=== PATIENT | female | born 1950 | race Caucasian/White ===

== ENCOUNTER 2018-07-13 11:18 | Inpatient (IN) ==
[2018-07-13] MEDS ORDERED: 0.9 % Sodium Chloride 1,000 ML IVC ONE ×2 (12:07→15:34)
[2018-07-13] MEDS ORDERED: Ondansetron 4 MG/2 ML VIAL IVP ONE ×2 (12:07→16:46)
[2018-07-13 12:57] LABS: Hematocrit 33.4 % (35.3-44.9); Hemoglobin 10.8 g/dL (11.5-15.4); Mean Corpuscular HGB Conc 32.3 g/dL (31.6-35.5); Mean Corpuscular Hemoglobin 29.6 pg (28.0-33.3); Mean Corpuscular Volume 91.5 fL (83.0-100.0); Mean Platelet Volume 9.7 fL (9.4-12.4); Platelet Count 314 K/mcL (140-400); Red Blood Count 3.65 M/mcL (3.82-4.97); Red Cell Distribution Width 12.5 % (11.5-14.5)
[2018-07-13 13:22] LABS: Lymphocytes # 0.5 K/mcL (0.6-4.6); Monocytes # 0.9 K/mcL (0.0-1.3); Platelet Estimate Normal (Normal)
--- NOTE | 2018-07-13 13:49 | Emergency Department Note ---
Disposition Clinical Impression: Abdominal pain, Hypernatremia, Dehydration Disposition: Admitted As Inpatient Condition: Fair Referrals: Juan,Dante Thayer MD [Primary Care Provider] - Forms: ED Satisfaction Letter, Work/School Release Time of Disposition: 15:18 General Adult HPI - General Chief complaint: ED Abdominal Pain Stated complaint: abd pain? Time Seen by Provider: 07/13/18 11:51 Source: patient, family Limitations: no limitations - History of Present Illness Pain Scale: 4 - Related Data Home Medications Medication Instructions Recorded Confirmed Bethanechol [Urecholine] 25 mg PO Q12H 07/13/18 07/13/18 Cetirizine HCl [All Day Allergy] 10 mg PO DAILY 07/13/18 07/13/18 Cyclobenzaprine HCl 10 mg PO TID 07/13/18 07/13/18 [Cyclobenzaprine HCl] Gabapentin [Neurontin] 300 mg PO TID 07/13/18 07/13/18 Lisinopril [Zestril] 5 mg PO DAILY 07/13/18 07/13/18 Omeprazole [PriLOSEC] 20 mg PO DAILY PRN 07/13/18 07/13/18 Oxybutynin Chloride [Ditropan Xl] 10 mg PO DAILY 07/13/18 07/13/18 Rosuvastatin Calcium [Rosuvastatin 10 mg PO HS 07/13/18 07/13/18 Calcium] Sertraline [Zoloft] 50 mg PO DAILY 07/13/18 07/13/18 Allergies Allergy/AdvReac Type Severity Reaction Status Date / Time No Known Allergies Allergy Verified 07/13/18 11:22 Past Medical History - Past Medical History Medical history: Reports: hyperlipidemia, hypertension Psychiatric history: Reports: no psych history - Social History Smoking Status: Never smoker Smokeless Tobacco Status: No Alcohol use: Reports: none Drug use: Reports: none Physical Exam - General Limitations: no limitations General appearance: alert Course Vital Signs Temperature 100.4 F H 07/13/18 11:21 Pulse Rate 62 07/13/18 11:21 Respiratory Rate 16 07/13/18 11:21 Blood Pressure 130/59 07/13/18 11:21 O2 Sat by Pulse Oximetry 100 07/13/18 11:21 Temperature 100.4 F H 07/13/18 11:49 Pulse Rate 100 07/13/18 14:00 Respiratory Rate 22 07/13/18 12:59 Blood Pressure 127/84 07/13/18 14:00 O2 Sat by Pulse Oximetry 97 07/13/18 14:00 Oxygen Delivery Oxygen Delivery Room Air Medical Decision Making - Lab Data Result diagrams: 07/13/18 12:22 07/13/18 12:22 Lab Results 07/13/18 07/13/18 07/13/18 Range/Units 12:22 12:22 14:35 WBC 23.4 H (4.3-11.1) K/mcL RBC 3.65 L (3.82-4.97) M/mcL Hgb 10.8 L (11.5-15.4) g/dL Hct 33.4 L (35.3-44.9) % MCV 91.5 (83.0-100.0) fL MCH 29.6 (28.0-33.3) pg MCHC 32.3 (31.6-35.5) g/dL RDW 12.5 (11.5-14.5) % Plt Count 314 (140-400) K/mcL MPV 9.7 (9.4-12.4) fL Seg Neutrophils % 93.0 % Band Neutrophils % 1.0 (0-4) % Lymphocytes % 2.0 % Monocytes % 4.0 % Neutrophils # 22.0 H (1.6-8.9) K/mcL Lymphocytes # 0.5 L (0.6-4.6) K/mcL Monocytes # 0.9 (0.0-1.3) K/mcL Platelet Estimate Normal (Normal) Sodium 156 H (136-145) mEq/L Potassium 3.2 L (3.5-5.1) mEq/L Chloride 82 L (98-107) mEq/L Carbon Dioxide 21 L (23-29) mEq/L BUN 18 (8-23) mg/dL Creatinine 0.80 (0.60-1.20) mg/dL Est GFR ( Amer) > 60 (> 60) Est GFR (Non-Af Amer) > 60 (> 60) BUN/Creatinine Ratio 23 (6-26) Glucose 122 H (70-105) mg/dL Calculated Osmolality 325 H (280-300) Lactic Acid 0.8 (0.5-2.2) mmol/L Calcium 7.0 L (8.6-10.3) mg/dL Total Bilirubin 0.7 (0.3-1.0) mg/dL Direct Bilirubin 0.2 (0.0-0.2) mg/dL Indirect Bilirubin 0.5 (0.0-1.2) mg/dL AST 12 L (13-39) Units/L ALT 9 (7-52) Units/L Alkaline Phosphatase 71 (34-104) Units/L Troponin I < 0.03 (< 0.04) ng/mL Serum Total Protein 6.0 L (6.4-8.9) g/dL Albumin 3.3 L (3.5-5.7) g/dL Globulin 2.7 (2.4-3.5) g/dL Albumin/Globulin Ratio 1.2 (1.1-2.2) Lipase 4 L (11-82) Units/L Critical Care Time Critical Care Time: Yes Total Critical Care Time: 35 Attestation: Critical care performed: Time is exclusive of separately billable procedures. Time includes: direct patient care, patient reassessment, coordination of patient care, interpretation of data (laboratory data, radiology data, and respiratory data), review of patient's medical records, medical consultation and documentation of patient care. Procedures included in critical care time: Procedures excluded from critical care time: Attestation Statement - Attestation Attestation: I, Thang Gonzalez DO, examined this patient [id number] and my medical decision-making was reviewed with Dr. Maureen Garcia, Resident Physician. I agree with the documented findings, disposition and treatment plan as described except to the extent set forth below. Please see my progress notes for details. 60-year-old female presents emergency room with nondescript abdominal discomfort and no desire to eat or drink anything. Currently she is denying chest pain shortness of breath headache vision changes nausea vomiting or diarrhea. Denies any fevers or chills prior to today's events. She has not traveled outside the country. She does not have any specific sick contacts. She does not have any history of hepatitis or liver related etiology. Patient is denying any new medications or eating at any abnormal restaurants. Patient is otherwise clinically stable resting in the bed. Vital signs are normal. Her lungs are clear her heart is regular. Her mucous membranes are dry her lips are cracked. Her trachea is midline. She has diffuse abdominal discomfort and tenderness but no guarding no rigidity no peritoneal symptoms. She has no CVA tenderness. There is no visible rashes or lesions. She has a stable pelvis. She denies any vaginal discharge bleeding or history of ovarian or uterine related issues. The patient is deferring on genitourinary examination at this time. She has no signs of pitting edema in the extremities. She moves all 4 of her extremities at this time without any difficulty. Patient was started with fluids nausea medication pain medication here in the emergency room. Chest x-ray EKG CBC chemistry troponin and BNP along with liver function testing and lipase. Urinalysis urine test will be added on. Patient will also CT imaging of the abdomen with noncontrasted evaluation. Clinical suspicion is for diverticulitis, renal colic , colitis, possible bowel obstruction or intra-abdominal related etiology. Disposition will be determined once the full workup and treatment course I been established. See detailed documentation of the physical exam, medical intervention, medical decision-making and disposition. No critical care provider the patient's treatment course at this time. Patient does have a temperature of 100.4. Tylenol and Motrin will be helpful to the liver function testing as well as the kidney function have been resulted. Fluids will be provided conjunctiva at this time. 1500 Patient has stable evaluation this time. No acute findings of infectious source at this point. Patient's sodium is profoundly elevated at 156. Nephrology was contacted for evaluation management of the lecture light abnormalities. Dr. Granger recommended a bolus of D5 in water and then maintenance fluids with D5 in water to be provided at 125 mL per hour. Possible and replete 20 mEq of her potassium and replete magnesium if needed. [address] Talley reviewed the patient's presentation symptoms medical intervention as well as a consultation with nephrology. No other acute concerns or issues are noted this time. Urinalysis is still pending. No other issues at this point. Patient will be admitted for continuation of care
[2018-07-13 13:59] LABS: Troponin I < 0.03 ng/mL (< 0.04)
--- NOTE | 2018-07-13 14:25 | Emergency Department Note ---
Disposition Clinical Impression: Dehydration, Pyelonephritis Abdominal pain Qualifiers: Abdominal location: unspecified location Qualified Code(s): R10.9 - Unspecified abdominal pain Disposition: Admitted As Inpatient Condition: Fair Referrals: Dante Martinez MD [Primary Care Provider] - Forms: ED Satisfaction Letter, Work/School Release Time of Disposition: 18:09 General Adult HPI - General Chief complaint: ED Abdominal Pain Stated complaint: abd pain? Time Seen by Provider: 07/13/18 11:51 Source: patient, family Mode of arrival: ambulatory Limitations: no limitations Nursing Notes Reviewed: Yes Vital Signs Reviewed: Yes - History of Present Illness HPI Narrative: 68-year-old female past medical history of hypertension presenting to the emergency department chief complaint of abdominal pain and fever. According to the patient for the past 3-4 days she has not been feeling well. Has not been able to take anything by mouth due to nausea and abdominal pain. Denies any vomiting or diarrhea. She states she has had some constipation and has been taking some stool softeners with moderate relief. Patient states she is also had some low-grade fevers at home. 100.4 or higher for the past 2 days. She went to her primary care physician today he was concerned and sent her here for further evaluation. Throughout this patient has denied any chest pain, headache , shortness of breath or dizziness. No known sick contacts. Pain Scale: 4 - Related Data Home Medications Medication Instructions Recorded Confirmed Bethanechol [Urecholine] 25 mg PO Q12H 07/13/18 07/13/18 Cetirizine HCl [All Day Allergy] 10 mg PO DAILY 07/13/18 07/13/18 Cyclobenzaprine HCl 10 mg PO TID 07/13/18 07/13/18 [Cyclobenzaprine HCl] Gabapentin [Neurontin] 300 mg PO TID 07/13/18 07/13/18 Lisinopril [Zestril] 5 mg PO DAILY 07/13/18 07/13/18 Omeprazole [PriLOSEC] 20 mg PO DAILY PRN 07/13/18 07/13/18 Oxybutynin Chloride [Ditropan Xl] 10 mg PO DAILY 07/13/18 07/13/18 Rosuvastatin Calcium [Rosuvastatin 10 mg PO HS 07/13/18 07/13/18 Calcium] Sertraline [Zoloft] 50 mg PO DAILY 07/13/18 07/13/18 Allergies Allergy/AdvReac Type Severity Reaction Status Date / Time No Known Allergies Allergy Verified 07/13/18 11:22 All systems ED: reviewed and negative except as stated. Constitutional: Reports: fever Eyes: Reports: as per HPI ENT ED: Reports: as per HPI Cardiovascular: Denies: chest pain, palpitations, dyspnea on exertion Respiratory: Denies: cough, dyspnea, wheezes Gastrointestinal: Reports: abdominal pain, nausea, constipation. Denies: vomiting, diarrhea Genitourinary: Reports: as per HPI Musculoskeletal: Reports: as per HPI Integumentary: Reports: as per HPI Neurological: Reports: weakness. Denies: numbness, paresthesias Psychiatric: Reports: as per HPI Endocrine: Reports: as per HPI Hematological/Lymphatic: Reports: as per HPI Allergic/Immunologic: Reports: as per HPI Past Medical History - Past Medical History Attestation: Yes The following information was validated with the patient. Medical history: Reports: hyperlipidemia, hypertension Psychiatric history: Reports: no psych history - Social History Smoking Status: Never smoker Smokeless Tobacco Status: No Alcohol use: Reports: none Drug use: Reports: none Physical Exam - General Limitations: no limitations General appearance: alert, in no apparent distress - Head Head exam: atraumatic, normocephalic, normal inspection - Eye Eye exam: Present: normal appearance. Absent: scleral icterus, conjunctival injection - ENT ENT exam: mucous membranes dry - Neck Neck exam: Present: normal inspection, full ROM. Absent: tenderness, meningismus - Chest Chest inspection: Present: normal inspection, symmetric chest wall rise. Absent : tenderness, rash - Respiratory Respiratory exam: Present: normal lung sounds bilaterally. Absent: respiratory distress, wheezes - Cardiovascular Cardiovascular exam: Present: regular rate, normal rhythm, normal heart sounds - Abdominal Exam Abdominal exam: Present: soft, tenderness. Absent: distention, guarding, rebound, rigidity Abdominal tenderness: Present: RUQ, LUQ, mild - Extremities Exam Extremities exam: Present: normal inspection, full ROM - Neurological Exam Neurological exam: Present: alert, oriented X3 - Psychiatric Psychiatric exam: Present: normal affect, normal mood - Skin Skin exam: Present: pallor Course Course Narrative: 68-year-old female presenting to the emergency department chief complaint of fever and abdominal pain. On exam patient has dry mucous membranes, mild abdominal tenderness in the right upper and left upper quadrants. Patient is pale on exam. She is alert and oriented 3 in the room in hemodynamically stable. At this time we are concern for sepsis of an intra-abdominal pathology. We will obtain basic laboratory analysis along with a CT of the abdomen and pelvis. We will provide fluid resuscitation and Zofran for the patient. Disposition pending results. Patient agrees with this plan. - Reevaluation(s) Reevaluation #1: Patient's laboratory analysis shows leukocytosis of 23.4. Initial BMP result showed a sodium of the 156. This was completed at 12:22 PM. I spoke with medical office professional instructor on-call Dr. Granger who states due to patient's laboratory analysis she is concerned for total free water deficit of 6 L. She requested we start the patient on D5W at 125 mL per hour. At approximately 3 PM laboratory analysis called and stated they made a mistake with the BMP and her sodium is actually 134. Patient had not received D5W yet at that time. Patient's urinalysis does show infection. CT abdomen and pelvis does show concern for pyelonephritis. Due to patient's high white count, fever and inability to keep fluids down at home we will plan to admit her for IV antibiotics and treatment of her pyelonephritis. She remains alert and oriented 3 in the room with stable vital signs. Patient to be fluid resuscitated and on her second liter at this time. Patient agrees with this plan. I spoke with the hospitalist clinical rn liaison Dr. Talley who agrees to accept the patient at this time. Vital Signs Temperature 100.4 F H 07/13/18 11:21 Pulse Rate 62 07/13/18 11:21 Respiratory Rate 16 07/13/18 11:21 Blood Pressure 130/59 07/13/18 11:21 O2 Sat by Pulse Oximetry 100 07/13/18 11:21 Temperature 103.2 F H 07/13/18 16:44 Pulse Rate 120 07/13/18 17:44 Respiratory Rate 22 07/13/18 16:50 Blood Pressure 135/62 07/13/18 17:44 O2 Sat by Pulse Oximetry 96 07/13/18 17:44 Oxygen Delivery Oxygen Delivery Room Air Medical Decision Making - Lab Data Result diagrams: 07/13/18 12:22 07/13/18 16:37 Lab Results 07/13/18 07/13/1818 Range/Units 12:22 12:22 14:35 WBC 23.4 H (4.3-11.1) K/mcL RBC 3.65 L (3.82-4.97) M/mcL Hgb 10.8 L (11.5-15.4) g/dL Hct 33.4 L (35.3-44.9) % MCV 91.5 (83.0-100.0) fL MCH 29.6 (28.0-33.3) pg MCHC 32.3 (31.6-35.5) g/dL RDW 12.5 (11.5-14.5) % Plt Count 314 (140-400) K/mcL MPV 9.7 (9.4-12.4) fL Seg Neutrophils % 93.0 % Band Neutrophils % 1.0 (0-4) % Lymphocytes % 2.0 % Monocytes % 4.0 % Neutrophils # 22.0 H (1.6-8.9) K/mcL Lymphocytes # 0.5 L (0.6-4.6) K/mcL Monocytes # 0.9 (0.0-1.3) K/mcL Platelet Estimate Normal (Normal) Sodium 134 L (136-145) mEq/L Potassium 3.4 L (3.5-5.1) mEq/L Chloride 98 (98-107) mEq/L Carbon Dioxide 28 (23-29) mEq/L BUN 20 (8-23) mg/dL Creatinine 0.89 (0.60-1.20) mg/dL Est GFR ( Amer) > 60 (> 60) Est GFR (Non-Af Amer) > 60 (> 60) BUN/Creatinine Ratio 22 (6-26) Glucose 136 H (70-105) mg/dL Calculated Osmolality 9 L (280-300) Lactic Acid 0.8 (0.5-2.2) mmol/L Calcium 9.4 (8.6-10.3) mg/dL Magnesium 1.8 (1.6-2.6) mg/dL Total Bilirubin 0.8 (0.3-1.0) mg/dL Direct Bilirubin 0.2 (0.0-0.2) mg/dL Indirect Bilirubin 0.6 (0.0-1.2) mg/dL AST 13 (13-39) Units/L ALT 9 (7-52) Units/L Alkaline Phosphatase 85 (34-104) Units/L Troponin I < 0.03 (< 0.04) ng/mL Serum Total Protein 6.8 (6.4-8.9) g/dL Albumin 3.7 (3.5-5.7) g/dL Globulin 3.1 (2.4-3.5) g/dL Albumin/Globulin Ratio 1.2 (1.1-2.2) Lipase 4 L (11-82) Units/L Ur Specimen Adequacy Urine Color (Yellow) Urine Clarity (Clear) Urine pH (5.0-8.0) pH Units Ur Specific Luana (1.010-1.025) Urine Protein (Neg-Trace) mg/dL Urine Glucose (UA) (Normal) mg/dL Urine Ketones (Negative) mg/dL Urine Blood (Negative) Urine Nitrite (Negative) Urine Bilirubin (Negative) Urine Urobilinogen (Normal) mg/dL Ur Leukocyte Esterase (Negative) Urine Microscopic RBC (0-3) per hpf Urine Microscopic WBC (0-3) per hpf Ur Squamous Epith Cells (None-Few) per lpf Urine Bacteria (None-Few) per hpf Hyaline Casts (None-Few) per lpf Ur Culture Indicated? (NO) Urine Osmolality (300-1090) mOsm/kg Urine Creatinine mg/dL Protein/Creatinin Ratio (0.00-0.20) mg/mg Urine Sodium mEq/L Urine Total Protein (1-14) mg/dL 07/13/18 07/13/18 07/13/18 Range/Units 15:01 15:01 15:01 WBC (4.3-11.1) K/mcL RBC (3.82-4.97) M/mcL Hgb (11.5-15.4) g/dL Hct (35.3-44.9) % MCV (83.0-100.0) fL MCH (28.0-33.3) pg MCHC (31.6-35.5) g/dL RDW (11.5-14.5) % Plt Count (140-400) K/mcL MPV (9.4-12.4) fL Seg Neutrophils % % Band Neutrophils % (0-4) % Lymphocytes % % Monocytes % % Neutrophils # (1.6-8.9) K/mcL Lymphocytes # (0.6-4.6) K/mcL Monocytes # (0.0-1.3) K/mcL Platelet Estimate (Normal) Sodium (136-145) mEq/L Potassium (3.5-5.1) mEq/L Chloride (98-107) mEq/L Carbon Dioxide (23-29) mEq/L BUN (8-23) mg/dL Creatinine (0.60-1.20) mg/dL Est GFR ( Amer) (> 60) Est GFR (Non-Af Amer) (> 60) BUN/Creatinine Ratio (6-26) Glucose (70-105) mg/dL Calculated Osmolality (280-300) Lactic Acid (0.5-2.2) mmol/L Calcium (8.6-10.3) mg/dL Magnesium (1.6-2.6) mg/dL Total Bilirubin (0.3-1.0) mg/dL Direct Bilirubin (0.0-0.2) mg/dL Indirect Bilirubin (0.0-1.2) mg/dL AST (13-39) Units/L ALT (7-52) Units/L Alkaline Phosphatase (34-104) Units/L Troponin I (< 0.04) ng/mL Serum Total Protein (6.4-8.9) g/dL Albumin (3.5-5.7) g/dL Globulin (2.4-3.5) g/dL Albumin/Globulin Ratio (1.1-2.2) Lipase (11-82) Units/L Ur Specimen Adequacy See below A Urine Color Yellow (Yellow) Urine Clarity Turbid A (Clear) Urine pH 6.0 (5.0-8.0) pH Units Ur Specific Luana < 1.005 L (1.010-1.025) Urine Protein 100 H (Neg-Trace) mg/dL Urine Glucose (UA) Normal (Normal) mg/dL Urine Ketones Negative (Negative) mg/dL Urine Blood Small H (Negative) Urine Nitrite Positive A (Negative) Urine Bilirubin Negative (Negative) Urine Urobilinogen Normal (Normal) mg/dL Ur Leukocyte Esterase Large H (Negative) Urine Microscopic RBC 5-15 H (0-3) per hpf Urine Microscopic WBC TNTC H (0-3) per hpf Ur Squamous Epith Cells Many H (None-Few) per lpf Urine Bacteria Many H (None-Few) per hpf Hyaline Casts None Seen (None-Few) per lpf Ur Culture Indicated? NO. A (NO) Urine Osmolality 495 (300-1090) mOsm/kg Urine Creatinine 120 mg/dL Protein/Creatinin Ratio 1.15 H (0.00-0.20) mg/mg Urine Sodium 74.5 mEq/L Urine Total Protein 138 H (1-14) mg/dL 07/13/18 Range/Units 16:37 WBC (4.3-11.1) K/mcL RBC (3.82-4.97) M/mcL Hgb (11.5-15.4) g/dL Hct (35.3-44.9) % MCV (83.0-100.0) fL MCH (28.0-33.3) pg MCHC (31.6-35.5) g/dL RDW (11.5-14.5) % Plt Count (140-400) K/mcL MPV (9.4-12.4) fL Seg Neutrophils % % Band Neutrophils % (0-4) % Lymphocytes % % Monocytes % % Neutrophils # (1.6-8.9) K/mcL Lymphocytes # (0.6-4.6) K/mcL Monocytes # (0.0-1.3) K/mcL Platelet Estimate (Normal) Sodium 133 L (136-145) mEq/L Potassium (3.5-5.1) mEq/L Chloride (98-107) mEq/L Carbon Dioxide (23-29) mEq/L BUN (8-23) mg/dL Creatinine (0.60-1.20) mg/dL Est GFR ( Amer) (> 60) Est GFR (Non-Af Amer) (> 60) BUN/Creatinine Ratio (6-26) Glucose (70-105) mg/dL Calculated Osmolality (280-300) Lactic Acid (0.5-2.2) mmol/L Calcium (8.6-10.3) mg/dL Magnesium (1.6-2.6) mg/dL Total Bilirubin (0.3-1.0) mg/dL Direct Bilirubin (0.0-0.2) mg/dL Indirect Bilirubin (0.0-1.2) mg/dL AST (13-39) Units/L ALT (7-52) Units/L Alkaline Phosphatase (34-104) Units/L Troponin I (< 0.04) ng/mL Serum Total Protein (6.4-8.9) g/dL Albumin (3.5-5.7) g/dL Globulin (2.4-3.5) g/dL Albumin/Globulin Ratio (1.1-2.2) Lipase (11-82) Units/L Ur Specimen Adequacy Urine Color (Yellow) Urine Clarity (Clear) Urine pH (5.0-8.0) pH Units Ur Specific Luana (1.010-1.025) Urine Protein (Neg-Trace) mg/dL Urine Glucose (UA) (Normal) mg/dL Urine Ketones (Negative) mg/dL Urine Blood (Negative) Urine Nitrite (Negative) Urine Bilirubin (Negative) Urine Urobilinogen (Normal) mg/dL Ur Leukocyte Esterase (Negative) Urine Microscopic RBC (0-3) per hpf Urine Microscopic WBC (0-3) per hpf Ur Squamous Epith Cells (None-Few) per lpf Urine Bacteria (None-Few) per hpf Hyaline Casts (None-Few) per lpf Ur Culture Indicated? (NO) Urine Osmolality (300-1090) mOsm/kg Urine Creatinine mg/dL Protein/Creatinin Ratio (0.00-0.20) mg/mg Urine Sodium mEq/L Urine Total Protein (1-14) mg/dL - EKG Data EKG #1 EKG attestation: Yes I reviewed and interpreted this EKG. EKG results narrative: Sinus rhythm. 97 beats for minute. RI interval 201, QRS 108, QTC 454. Significant artifact noted. No signs of acute ST segment elevation or ischemia. Compared to previous EKG completed on 07/17/2013 no significant changes noted Attestation Statement - Attestation Attestation: I, Thang Gonzalez DO, examined this patient [id number] and my medical decision-making was reviewed withDr. Maureen Garcia, Resident Physician. I agree with the documented findings, disposition and treatment plan as described except to the extent set forth below. Please see my progress notes for details.
[2018-07-13 14:39] LABS: Alanine Aminotransferase 9 Units/L (7-52); Bilirubin,Direct 0.2 mg/dL (0.0-0.2); Lipase 4 Units/L (11-82); eGFR For Non-African Americans > 60 (> 60)
[2018-07-13] MEDS ORDERED: D5% in Water 1,000 ML IVC SCH (15:00)
[2018-07-13] MEDS ORDERED: Potassium Chloride 20 MEQ in D5% in Water 1,000 ML IVC SCH (15:00)
[2018-07-13 15:26] LABS: Sodium 134 mEq/L (136-145)
[2018-07-13 15:27] LABS: Carbon Dioxide 28 mEq/L (23-29); Chloride 98 mEq/L (98-107); Potassium 3.4 mEq/L (3.5-5.1)
[2018-07-13 15:28] LABS: Bilirubin,Urine Negative (Negative); Blood,Urine Small (Negative); Clarity,Urine Turbid (Clear); Color,Urine Yellow (Yellow); Glucose,Urine (UA) Normal (Normal); Ketones,Urine Negative (Negative); Leukocyte Esterase,Urine Large (Negative); Nitrite,Urine Positive (Negative); Protein,Urine 100 mg/dL (Neg-Trace); Specific Gravity,Urine < 1.005 (1.010-1.025); Urobilinogen,Urine Normal (Normal)
[2018-07-13 15:28] LABS: BUN/Creatinine Ratio 22 (6-26); Blood Urea Nitrogen 20 mg/dL (8-23)
[2018-07-13 15:29] LABS: Bilirubin,Indirect 0.6 mg/dL (0.0-1.2); Bilirubin,Total 0.8 mg/dL (0.3-1.0); Calcium 9.4 mg/dL (8.6-10.3); Glucose 136 mg/dL (70-105); Magnesium 1.8 mg/dL (1.6-2.6); Osmolality,Calculated 9 (280-300)
[2018-07-13 15:30] LABS: Alkaline Phosphatase 85 Units/L (34-104); Aspartate Amino Transferase 13 Units/L (13-39); Total Protein 6.8 g/dL (6.4-8.9)
[2018-07-13 15:32] LABS: Albumin 3.7 g/dL (3.5-5.7); Albumin/Globulin Ratio 1.2 (1.1-2.2); Globulin 3.1 g/dL (2.4-3.5)
[2018-07-13 15:32] LABS: Bacteria,Urine Many per hpf (None-Few); Hyaline Casts,Urine None Seen per lpf (None-Few); Squamous Epithelial Cell,Urine Many per lpf (None-Few); WBC,Urine TNTC per hpf (0-3)
[2018-07-13] MEDS ORDERED: cefTRIAXone 1,000 MG in Water for inj. (sterile) 20 ML 10 ML IVP ONE ×2 (15:34→17:08)
[2018-07-13 15:38] LABS: Protein/Creatinine Ratio,Urine 1.15 mg/mg (0.00-0.20); Sodium, Urine 74.5 mEq/L
[2018-07-13] MEDS ORDERED: Naloxone 0.4 MG/ML INJ IVP PRN (16:43)
--- NOTE | 2018-07-13 16:44 | Internal Med History&Physical ---
<Nicole Stokes - Last Filed: 07/13/18 18:46> Date of Encounter: 07/13/18 Internal Medicine - H&P: HPI History of present illness: Ms. Gordon is a 68 year old female Internal Medicine - H&P: Meds Bethanechol [Urecholine] 25 mg PO Q12H 07/13/18 [History] Cetirizine HCl [All Day Allergy] 10 mg PO DAILY 07/13/18 [History] Cyclobenzaprine HCl [Cyclobenzaprine HCl] 10 mg PO TID 07/13/18 [History] Gabapentin [Neurontin] 300 mg PO TID 07/13/18 [History] Lisinopril [Zestril] 5 mg PO DAILY 07/13/18 [History] Omeprazole [PriLOSEC] 20 mg PO DAILY PRN 07/13/18 [History] Oxybutynin Chloride [Ditropan Xl] 10 mg PO DAILY 07/13/18 [History] Rosuvastatin Calcium [Rosuvastatin Calcium] 10 mg PO HS 07/13/18 [History] Sertraline [Zoloft] 50 mg PO DAILY 07/13/18 [History] 3 Allergy/AdvReac Type Severity Reaction Status Date / Time No Known Allergies Allergy Verified 07/13/18 11:22 All Systems PM: A 10-system review of systems was performed and is negative for pertinent findings except as documented above in the HPI. - Constitutional Vitals: Temp Pulse Resp BP Pulse Ox 103.2 F H 108 22 134/93 98 07/13/18 16:44 07/13/18 16:50 07/13/18 16:50 07/13/18 16:50 07/13/18 16:50 Internal Med - H&P Results - Labs CBC & Chem 7: 07/13/18 12:22 07/13/18 16:37 Labs: Short CBC 07/13/18 Range/Units 12:22 WBC 23.4 H (4.3-11.1) K/mcL Hgb 10.8 L (11.5-15.4) g/dL Hct 33.4 L (35.3-44.9) % Plt Count 314 (140-400) K/mcL Neutrophils # 22.0 H (1.6-8.9) K/mcL BMP 07/13/18 07/13/18 12:22 16:37 Sodium 134 L 133 L Potassium 3.4 L Chloride 98 Carbon Dioxide 28 BUN 20 Creatinine 0.89 Glucose 136 H Calcium 9.4 Cardiac Enzymes 07/13/18 Range/Units 12:22 Troponin I < 0.03 (< 0.04) ng/mL Liver Function 07/13/18 Range/Units 12:22 Total Bilirubin 0.8 (0.3-1.0) mg/dL Direct Bilirubin 0.2 (0.0-0.2) mg/dL AST 13 (13-39) Units/L ALT 9 (7-52) Units/L Alkaline Phosphatase 85 (34-104) Units/L Albumin 3.7 (3.5-5.7) g/dL Urine 07/13/18 Range/Units 15:01 Urine Color Yellow (Yellow) Urine Clarity Turbid A (Clear) Urine pH 6.0 (5.0-8.0) pH Units Ur Specific Shirley < 1.005 L (1.010-1.025) Urine Protein 100 H (Neg-Trace) mg/dL Urine Glucose (UA) Normal (Normal) mg/dL - Impressions ITS Impressions Abdomen/Pelvis CT 07/13/18 13:11 IMPRESSION: 1. Infiltration of the left pararenal space appears new since June 2012. Pyelonephritis could give this appearance. No definite obstructing stone is identified. No hydronephrosis. 2. Normal appearing gallbladder. 3. Enlargement of the left renal cyst from 4.3 cm to 5.5 cm. This appears to be a simple cyst and requires no further imaging evaluation. 4. Colonic diverticulosis without evidence for diverticulitis. 5. Normal appearing appendix. 6. No obstructive uropathy. D/ / 07/13/2018 14:22:32 Joesph Pickett MD / kenny Interpreting Provider: Joesph Pickett MD Chest X-Ray 07/13/18 13:52 IMPRESSION: No radiographic evidence of acute cardiopulmonary process. D/ / Celso Sanchez MD / Celso Sanchez MD Interpreting Provider: Celso Sanchez MD - Time Spent With Patient Total time spent is greater than 50% in coordination of care (as documented) at patient's floor/unit and/or counseling patient: - Attending Attestation The history, physical exam, and medical decision making was performed by medical student Laina either while I was physically present and actively involved or I personally re-performed the exam and medical decision making. I have verified the accuracy of the medical student's documentation with regards to the history, physical exam findings, and medical decision making. Ms Gordon presented to ED with c/o nausea, anorexia and malaise. Onset of symptoms was approx 36 hrs ago. She notes that since cervical disk compression surgery 2 weeks ago she has had difficulty with urinary retention and constipation. She has noted in last two days worsened retention, and urinary hesitancy. Home med did not improve symptoms. Had bm today and very hard. Denies dysuria, hematuria, increased urgency or frequency. Denies + CVA tenderness. + supra pubic tenderness. Has had associated fever 100.7 at home She denies any other s/s of infection including cough, congestion, wheezing, rhinorrhea, rash, wounds, diarrhea. She has had no issues post op, has been seen this week in follow up and doing well, no drainage from round, no headaches or neck pain any different than her baseline skin- no rash, color change, bruising, purpura or petechia gen- no weight changes, night sweats, fever as above, no rigors neuro - no confusion, jurado, spine pain, dizziness, syncope or seizure, neck stiffness or pain 10 pt ros reviewed and negative other than noted above ED course included UA highly suspicious for uti, cx sent, wbc 23.4, received ivfs, rocephin General: awake, alert, appears stated age HEENT:EOM intact pupils equal, round, moist mucus membranes, clear oropharynx Neck: supple, trachea midline, healing midline incision Cardiovascular:regular rate and rhythm, normal S1 & S2, no rubs, murmurs or gallops. No JVD. radial pulses 2+, no lower extremity edema Lungs:Normal breath sounds, no wheezes, or crackles. Normal respiratory effort on ra Abdomen:Soft, non-tender, non-distended, no rigidity, + bowel sounds Extremities:No deformity, no edema or tenderness, no joint swelling or clubbing. neck rom intact and painless Neurological: AAOx3, CN grossly intact, no focal deficits Skin:Normal color, no rash, no pallor, no jaundice, no purpura/petechiae , no drainage or erythema with healing wound on neck Sepsis suspected 2/2 Pyelonephritis as evidenced by WBC 23, fever 103.2, HR 108 , RR 22, suspected source BPs are normotensive and no drop in sbp or dbp in ED Infection Likely 2/2 Urinary Retention given her history -ucx and bl cxs sent -CXR neg -no meningitic signs/symptoms (given recent surgery of cspine) -CT a/p c/w left pyelonephritis, no hydronephrosis, left renal cyst and no other cause of abd pain identified including appendicitis or diverticulitis -check lactate -s/p sepsis protocol IVFs in ED, MIVF (with monitoring of na as below) -cont rocephin -check pvr -hold any home meds with s/e retention -stool softner for constipation and laxative as needed HTN hx- normotensive, hold antihypertensives in sepsis setting and monitor bp ( lisinopril) HLD-cont statin Anemia, hgb 10.8, ua small blood, no other evidence bleeding, cont to monitor, will review records for baseline Hypokalemia, 3.4- given KCL in ED, monitor Hyponatremia 133, mild, do not suspect this is the cause of her malaise- received 3L boluses in ED, repeat na level now no significant change and may cont ivf as above <Luis Fernando Marina R - Last Filed: 07/13/18 18:58> Date of Encounter: 07/13/18 Time of Encounter: 17:52 Internal Medicine - H&P: HPI Chief complaint: "Can't keep anything down" Admitted From: Home History of present illness: Ms. Gordon is a 68 year old female with chronic medical conditions including Hypertension and Hyperlipidemia, who presents to the ED with 1.5 day history of anorexia, nausea, and lethargy. Per the patient's , she woke up yesterday morning feeling as if she needed to vomit, but was unable to do so. Since then she has been nauseous and did not have appetite for food or water. She was fatigued and spent most of the day in bed. This morning she appeared confused and was complaining of urinary hesitancy. She had the urge to urinate, but was unable to do so. This is an ongoing problem since her neck disk decompression surgery 2 weeks ago. She has been taking bethanechol for the urinary retention, and it was helping until this morning. Nothing improves her symptoms, but sitting up worsens her nausea. She has been having abdominal pain since this morning as well, but was unable to describe the pain. She had a fever of 100.7 at home, for which the patient and her went to see their PCP this afternoon. He recommended they come to the ED. Patient's notes that this is her second time that she has gotten a "kidney infection". She was hospitalized in November for pylonephritis in [place]. She stayed in the hospital for a few days and was given antibiotics before being discharged. The patient's was unsure what antibiotic she was given before. There is associated fevers and chills. No emesis, diarrhea, hematuria, recent travel, sick contact exposure. Past Med Surg Social Fam HX - Past Medical History Medical history: hyperlipidemia, hypertension Psychiatric history: no psych history - Past Surgical History Additional surgical history: Neck Surgery x3, Back Surgery - Social History Smoking Status: Never smoker Smokeless Tobacco Status: No Alcohol use: rarely Drug use: none Occupational status: other Current living situation: Home - Independent, With Family Activity Level: Independent ambulation Recent Out of Country Travel Within the Last 8 Weeks: No Exposure or Possible Exposure to Illness During Travel: No All Systems PM: A 10-system review of systems was performed and is negative for pertinent findings except as documented above in the HPI. - Constitutional Constitutional: anorexia, chills, fatigue, fever(s), lethargy - EENT Eyes: no change in vision, no discharge, no pain, no photophobia Ears: no ear discharge, no ear pain, no tinnitus Nose, mouth and throat: neck pain - Cardiovascular Cardiovascular ROS IM: no chest pain, no dyspnea, no dyspnea on exertion, no edema, no orthopnea, no palpitations - Respiratory Respiratory: no cough, no wheezing, no pain on inspiration - Gastrointestinal Gastrointestinal: abdominal pain, change in bowel habits, constipation, nausea, no vomiting - Genitourinary Genitourinary: difficulty urinating, urinary hesitancy, urinary urgency, no dysuria - Musculoskeletal Musculoskeletal ROS IM: neck pain - Neurological Neurological ROS: confusion - Psychiatric Psychiatric: no depression, no hallucinations, no mood swings - Endocrine Endocrine IM: fatigue, no polydipsia, no polyphagia, no polyuria - Allergic/Immunologic Allergic/Immunologic: seasonal rhinorrhea - Constitutional Vitals: Temp Pulse Resp BP Pulse Ox 100.4 F H 105 20 123/85 97 07/13/18 11:49 07/13/18 15:49 07/13/18 15:49 07/13/18 15:49 07/13/18 14:00 Exam: female lying in bed. Appears pale and ill - Head Head exam: Present: atraumatic, normal inspection, normocephalic - Eye Eye exam: Present: PERRL, conjuntiva pink. Absent: periorbital swelling, scleral icterus - ENT ENT exam: Present: mucous membranes dry - Neck Neck exam general surgery: Absent: lymphadenopathy, thyromegaly Additional comments: 3 cm incision posterior neck. Dry, not erythematous. Looks clean - Respiratory Respiratory exam: Present: CTAB. Absent: decreased breath sounds, respiratory distress, wheezes - Cardiovascular Cardiovascular exam: Present: RRR, +S1, +S2, tachycardia - GI/Abdominal GI/Abdominal exam: Present: normal bowel sounds, soft, tenderness (Left lower quadrant). Absent: guarding, hepatomegaly - Extremities Exam Extremities exam: Present: warm, radial pulses palpable and symmetrical. Absent : calf tenderness, cyanotic, pedal edema - Back Exam Back exam: Absent: CVA tenderness (L), CVA tenderness (R) - Neurological Exam Neurological exam: Present: alert, oriented X3 - Skin Skin exam: Present: dry, intact, normal color, warm. Absent: abrasion, cyanosis , diaphoretic Internal Med - H&P Results - Labs CBC & Chem 7: 07/13/18 12:22 07/13/18 16:37 Labs: Short CBC 07/13/18 Range/Units 12:22 WBC 23.4 H (4.3-11.1) K/mcL Hgb 10.8 L (11.5-15.4) g/dL Hct 33.4 L (35.3-44.9) % Plt Count 314 (140-400) K/mcL Neutrophils # 22.0 H (1.6-8.9) K/mcL BMP 07/13/18 12:22 Sodium 134 L Potassium 3.4 L Chloride 98 Carbon Dioxide 28 BUN 20 Creatinine 0.89 Glucose 136 H Calcium 9.4 Cardiac Enzymes 07/13/18 Range/Units 12:22 Troponin I < 0.03 (< 0.04) ng/mL Liver Function 07/13/18 Range/Units 12:22 Total Bilirubin 0.8 (0.3-1.0) mg/dL Direct Bilirubin 0.2 (0.0-0.2) mg/dL AST 13 (13-39) Units/L ALT 9 (7-52) Units/L Alkaline Phosphatase 85 (34-104) Units/L Albumin 3.7 (3.5-5.7) g/dL Urine 07/13/18 Range/Units 15:01 Urine Color Yellow (Yellow) Urine Clarity Turbid A (Clear) Urine pH 6.0 (5.0-8.0) pH Units Ur Specific Shirley < 1.005 L (1.010-1.025) Urine Protein 100 H (Neg-Trace) mg/dL Urine Glucose (UA) Normal (Normal) mg/dL - Impressions ITS Impressions Abdomen/Pelvis CT 07/13/18 13:11 IMPRESSION: 1. Infiltration of the left pararenal space appears new since June 2012. Pyelonephritis could give this appearance. No definite obstructing stone is identified. No hydronephrosis. 2. Normal appearing gallbladder. 3. Enlargement of the left renal cyst from 4.3 cm to 5.5 cm. This appears to be a simple cyst and requires no further imaging evaluation. 4. Colonic diverticulosis without evidence for diverticulitis. 5. Normal appearing appendix. 6. No obstructive uropathy. D/ / 07/13/2018 14:22:32 Joesph Pickett MD / kenny Interpreting Provider: Joesph Pickett MD Chest X-Ray 07/13/18 13:52 IMPRESSION: No radiographic evidence of acute cardiopulmonary process. D/ / Celso Sanchez MD / Celso Sanchez MD Interpreting Provider: Celso Sanchez MD - Assessment and plan (1) Sepsis Current Visit: Yes Status: Acute Assessment and plan: -Patient currently meets sepsis criteria: 103.2 F, 108 BPM, 22 RR, 23.4 WBC -Lactic acid in the ED was .8 -Likely 2/2 pyelonephritis -CT abdomen/pelvis 07/13 shows infiltration of the left pararenal space, with no definite obstructing stone. No hydronephrosis. Colonic diverticulosis without evidence for diverticulitis -UA shows large urine leukocyte esterase and positive urine nitrate -Blood cultures drawn prior to antibiotic administration -2g ceftriaxone IV was given in the ED Plan: -Continue IVF -Continue ceftriaxone 2g qd -Zofran prn for nausea -Tylenol prn for fever -Blood cx pending -Urine cx pending -Repeat lactic acid -Home medication gabapentin held for today so as to not confound mental status in the setting of sepsis. Will reassess tomorrow Qualifiers: Sepsis type: sepsis due to unspecified organism Qualified Code(s): A41.9 - Sepsis, unspecified organism (2) Pyelonephritis Current Visit: Yes Status: Acute Assessment and plan: -Patient has history of urinary retention for which she takes bethanechol -Has temperature of 103.2, chills, and nausea -CT abdomen/pelvis 07/13 shows infiltration of the left pararenal space, with no definite obstructing stone. No hydronephrosis. Colonic diverticulosis without evidence for diverticulitis -UA shows large urine leukocyte esterase and positive urine nitrate -UA showed many squamous epithelial cells and did not meet indications for culture, but urine culture ordered Plan: -Continue IVF -Continue Ceftriaxone 2g -Zofran prn for nausea -Urine cx pending (3) Abdominal pain Current Visit: Yes Status: Acute Assessment and plan: -2/2 pyelonephritis vs less likely diverticulitis -CT abdomen/pelvis 07/13 shows infiltration of the left pararenal space, with no definite obstructing stone. No hydronephrosis. Colonic diverticulosis without evidence for diverticulitis -UA shows large urine leukocyte esterase and positive urine nitrate -Patient is not having diarrhea Plan: -Same as above Qualifiers: Abdominal location: left lower quadrant Qualified Code(s): R10.32 - Left lower quadrant pain (4) Urinary retention Current Visit: Yes Status: Acute Assessment and plan: -Patient complains of urinary retention s/p neck surgery 06/27/2018 -Takes bethanechol at home -Possible etiology for pyelonephritis -Patient refusing alanis catheter placement Plan: -Get post void residual -Strict I/O (5) Confusion Current Visit: Yes Status: Acute Assessment and plan: -Likely 2/2 sepsis -AO x 4, but is disoriented and does not appropriately answer questions Plan: -Hold home medication gabapentin for tonight (6) Hypertension Current Visit: No Status: Chronic Assessment and plan: -Currently normotensive -Hold home medication lisinopril -Continue to monitor vitals Qualifiers: Hypertension type: essential hypertension Qualified Code(s): I10 - Essential (primary) hypertension (7) Hyperlipidemia Current Visit: No Status: Chronic Assessment and plan: -Continue home medication rosuvastatin Qualifiers: Hyperlipidemia type: unspecified Qualified Code(s): E78.5 - Hyperlipidemia , unspecified (8) DVT prophylaxis Current Visit: Yes Status: Acute Assessment and plan: Heparin SQ 5000 mg BID - Time Spent With Patient Total time spent is greater than 50% in coordination of care (as documented) at patient's floor/unit and/or counseling patient:
[2018-07-13] MEDS ORDERED: Ondansetron 4 MG/2 ML VIAL IVP PRN (16:45)
[2018-07-13] MEDS ORDERED: Acetaminophen 325 MG TABLET PO ONE (16:46)
[2018-07-13] MEDS ORDERED: 0.9 % Sodium Chloride 500 ML IVC ONE (17:06)
[2018-07-13] MEDS: 0.9 % Sodium Chloride 1,000 ML IVC SCH (17:49)
[2018-07-13] MEDS: *HR* Heparin 5,000 UNIT/ML VIAL SQ SCH (22:07)
--- NOTE | 2018-07-13 23:57 | Sepsis Event Note ---
Sepsis Reassessment Note - Evaluation Sepsis Screen: No Definite Risk Current Stage of Sepsis: sepsis Possible Source of Sepsis: genitourinary - Focused Exam Date of Encounter: 07/13/18 Time of Encounter: 23:55 Vital Signs: Vital Signs Temp Pulse Resp BP Pulse Ox 07/13/18 20:37 98 F 97 15 118/71 93 Respiratory Exam: Present: CTA bilaterally. Absent: wheezes, rales, rhonchi, respiratory distress, decreased breath sounds Cardiovascular Exam: Present: RRR, S1, S2. Absent: murmur, rubs, gallop Capillary Refill: < 2 seconds Peripheral Pulse Strength: 3+ normal Peripheral Pulse Location: Pedal Skin Exam: unremarkable - Reassessment Comments Comments: Patient states she feels same as yesterday. Denies any complaints.
[2018-07-14] MEDS: 0.9 % Sodium Chloride 1,000 ML IVC SCH (01:20)
[2018-07-14 04:16] LABS: blaKPC Carbapenem-Resist Gene Not Detected (Not Detect)
[2018-07-14 04:17] LABS: Acinetobacter baumannii by PCR Not Detected (Not Detect); Candida albicans by PCR Not Detected (Not Detect); Candida glabrata by PCR Not Detected (Not Detect); Candida krusei by PCR Not Detected (Not Detect); Candida parapsilosis by PCR Not Detected (Not Detect); Candida tropicalis by PCR Not Detected (Not Detect); Enterobacter cloacae Cmplx PCR Not Detected (Not Detect); Enterobacteriaceae by PCR DETECTED (Not Detect); Enterococcus by PCR Not Detected (Not Detect); Escherichia coli by PCR DETECTED (Not Detect); Klebsiella oxytoca by PCR Not Detected (Not Detect); Klebsiella pneumoniae by PCR Not Detected (Not Detect); Proteus by PCR Not Detected (Not Detect); Pseudomonas aeruginosa by PCR Not Detected (Not Detect); Serratia marcescens by PCR Not Detected (Not Detect); Staphylococcus aureus by PCR Not Detected (Not Detect); Staphylococcus by PCR Not Detected (Not Detect); Streptococcus agalactiae(B)PCR Not Detected (Not Detect); Streptococcus by PCR Not Detected (Not Detect); Streptococcus pneumoniae PCR Not Detected (Not Detect); Streptococcus pyogenes (A) PCR Not Detected (Not Detect)
[2018-07-14] MEDS: *HR* Heparin 5,000 UNIT/ML VIAL SQ SCH ×2 (06:32→18:10)
[2018-07-14 07:03] LABS: Basophils % 0.2 %; Hematocrit 29.7 % (35.3-44.9); Hemoglobin 9.5 g/dL (11.5-15.4); Immature Granulocytes % 1.2 % (0-4); Lymphocytes # 0.5 K/mcL (0.6-4.6); Lymphocytes % 2.8 %; Mean Corpuscular Hemoglobin 29.6 pg (28.0-33.3); Mean Corpuscular Volume 92.5 fL (83.0-100.0); Mean Platelet Volume 10.4 fL (9.4-12.4); Monocytes # 1.1 K/mcL (0.0-1.3); Monocytes % 5.7 %; Neutrophils # 16.8 K/mcL (1.6-8.9); Platelet Count 264 K/mcL (140-400); Red Blood Count 3.21 M/mcL (3.82-4.97); Red Cell Distribution Width 12.6 % (11.5-14.5); Segmented Neutrophils % 90.1 %
[2018-07-14 07:08] LABS: BUN/Creatinine Ratio 19 (6-26); Blood Urea Nitrogen 16 mg/dL (8-23); Calcium 8.4 mg/dL (8.6-10.3); Carbon Dioxide 19 mEq/L (23-29); Chloride 106 mEq/L (98-107); Glucose 105 mg/dL (70-105); INR 1.3; Osmolality,Calculated 282 (280-300); Potassium 3.4 mEq/L (3.5-5.1); Prothrombin Time 14.9 Seconds (9.4-12.1); Sodium 135 mEq/L (136-145); eGFR For Non-African Americans > 60 (> 60)
[2018-07-14 07:11] LABS: Activated Partial Thrombo Time 27.3 Seconds (26.0-36.0)
--- NOTE | 2018-07-14 09:12 | Internal Med Progress Note ---
<Girma Schneider - Last Filed: 07/14/18 11:48> Hospitalist Progress Note - Encounter Date of Encounter: 07/14/18 Time of Encounter: 09:09 - Subjective Interval History: Ms. Gordon still feels unwell and ill this morning. She continues to have some chills and sweats at times. Patient reports that she does not have back pain or flank pain, no changes in urination. Patient also did not eat anything yet. Patient reports she saw Urology after episode of Pyelo in Nov 2017 and it was on the left at that time. Patient denies chest pain, vomiting, shortness of breath, abdominal pain, changes in bowels or bladder, weakness, or rash. - Exam Vitals: Temp Pulse Resp BP Pulse Ox 98.4 F 74 16 133/78 97 07/14/18 06:58 07/14/18 06:58 07/14/18 06:58 07/14/18 06:58 07/14/18 06:58 Exam: General: slightly ill appearing, no acute distress, awake and alert and oriented x 4, answers questions appropriately HEENT: moist mucus membranes CV: RRR, no murmurs Lungs: CTAB, no wheezing, rhonchi, or rales Abd: soft, nontender, normal bowel sounds Ext: no edema or cyanosis Msk: moves all extreities, strenght 5/5 Skin: dry, intact, no rash. - Assessment and Plan (1) Sepsis Current Visit: Yes Status: Resolved Assessment and Plan: Sepsis with temp 103.2F, tachycardia, tachypnea, and WBC 23.4 on arrival Likely source pyelonephritis on L Lactic acid 0.8, 0.6 CT abd/pelvis revealed infiltartion around the left pararenal space and colonic diverticulosis without evidence of diverticulitis, no hydronephosis or obstructin stone UA with large leuk esterase, nitrites Bp stable, nontachycardic, nontachypneic, afebrile, WBC down to 18.7 Blood cultures 07/13/18 gram negative vesta, e.coli Urine culture ordered -Encourage oral intake, IV fluids discontinued -Continue Rocephin d2 -Zofran prn for nausea, phenergan prn nausea -Tylenol prn for fever (2) Pyelonephritis Current Visit: Yes Status: Acute Assessment and Plan: Pyelonephritis on CT abd/pelvis upon arrival -Continue per plan in assessment above (3) Abdominal pain Current Visit: Yes Status: Resolved Assessment and Plan: Resolved Left lower abdominal pain on arrival Likely secondary to pyelonephritis. Less likely early diverticulitis given no diarrhea and no findings on image to suggest -Continue per plan in assessment above. (4) Urinary retention Current Visit: Yes Status: Acute Assessment and Plan: Patient continues to have urinary retention s/p neck surgery 06/27/18 Was on oxybutynin for stress incontinence and was started on bethanechol s/p surgery May be related to second episode of pyelonephritis in 2018 and no prior history prior Refusing alanis cath Post void residual bladder scan with 761mL large post void volume -Strict I/O -Alanis cath highly recommended -Urology consult (urinary retention workup, evaluate and home med evaluation and recommended management) Held home med of oxybutynin, flexeril, and bethanechol (5) Confusion Current Visit: Yes Status: Acute Assessment and Plan: Resolved Some confusion on admission, likely secondary to sepsis AxO x 4 -Restart home med gabapentin for chronic neck pain as back to baseline mental status (6) Hypertension Current Visit: No Status: Chronic Assessment and Plan: Bp stable on admission and overnight -Continue to monitor -Continue holding home lisinopril as patient bp < 140 Consider restarting tomorrow or if sBp > 140. (7) Hyperlipidemia Current Visit: No Status: Chronic Assessment and Plan: Known history of hyperlipidemia Continue home med for chronic disease management DVT Prophylaxis: heparin sq - Time Spent with Patient Total time spent is greater than 50% in coordination of care (as documented) at patient's floor/unit and/or counseling patient: Internal Medicine: Result - Labs CBC & Chem 7: 07/14/18 03:48 07/14/18 03:48 Labs: Short CBC 07/14/18 Range/Units 03:48 WBC 18.7 H (4.3-11.1) K/mcL Hgb 9.5 L (11.5-15.4) g/dL Hct 29.7 L (35.3-44.9) % Plt Count 264 (140-400) K/mcL Neutrophils # 16.8 H (1.6-8.9) K/mcL BMP 07/13/18 07/14/18 18:37 03:48 Sodium 134 L 135 L Potassium 3.4 L Chloride 106 Carbon Dioxide 19 L BUN 16 Creatinine 0.85 Glucose 105 Calcium 8.4 L - ABG Interpretation ABG results: PT/INR, D-dimer PT 14.9 Seconds (9.4-12.1) H 07/14/18 03:48 - Impressions Impressions Bladder Ultrasound 07/13/18 18:34 IMPRESSION: Large postvoid bladder residual. D/ / 07/13/2018 20:32:25 Chauncey Huynh MD / jostin Interpreting Provider: Chauncey Huynh MD Consult Discharge Plan - Plan Referrals: Dante Martinez MD [Primary Care Provider] - <Nicole Stokes - Last Filed: 07/14/18 14:29> Hospitalist Progress Note - Encounter Date of Encounter: 07/14/18 - Exam Vitals: Temp Pulse Resp BP Pulse Ox 99.4 F 84 16 130/76 97 07/14/18 11:52 07/14/18 11:52 07/14/18 11:52 07/14/18 11:52 07/14/18 11:52 - Time Spent with Patient Total time spent is greater than 50% in coordination of care (as documented) at patient's floor/unit and/or counseling patient: Internal Medicine: Result - Labs CBC & Chem 7: 07/14/18 03:48 07/14/18 03:48 Labs: Short CBC 07/14/18 Range/Units 03:48 WBC 18.7 H (4.3-11.1) K/mcL Hgb 9.5 L (11.5-15.4) g/dL Hct 29.7 L (35.3-44.9) % Plt Count 264 (140-400) K/mcL Neutrophils # 16.8 H (1.6-8.9) K/mcL BMP 07/13/18 07/14/18 18:37 03:48 Sodium 134 L 135 L Potassium 3.4 L Chloride 106 Carbon Dioxide 19 L BUN 16 Creatinine 0.85 Glucose 105 Calcium 8.4 L - ABG Interpretation ABG results: PT/INR, D-dimer PT 14.9 Seconds (9.4-12.1) H 07/14/18 03:48 - Impressions Impressions Bladder Ultrasound 07/13/18 18:34 IMPRESSION: Large postvoid bladder residual. D/ / 07/13/2018 20:32:25 Chauncey Huynh MD / jostin Interpreting Provider: Chauncey Huynh MD - Attending Attestation I examined this patient and my medical decision-making was reviewed with the Resident Physician Dr Schneider. I agree with the documented findings, disposition and treatment plan as described except to the extent set forth below /addl details below. Awake in bed, confusion improved, at bedside. + fatigue, mild suprapubic discomofrt, + nausea. denies fevers, chills, emesis, cva tenderness. + anorexia, encouraged fluids. Family updated to bl cx resutls. She had alanis cath placed. gen- alert, awake,appears stated age eyes- pupils equal round ent- mmm, clear orphraynx cv- reg rate and rhythm, normal s1,s2, no murmurs appreciated lungs- ctabl, no wheezing, rhonchi or crackles abd- soft, non tender, non distended, + bs gu- alanis cath draining clear yellow urine neuro- AAOx3, CN grossly intact, no focal deficits Sepsis 2/2 Pyelonephritis and bacteremiaas evidenced by WBC 23, fever 103.2, HR 108, RR 22, suspected source Infection Likely 2/2 Urinary Retention given her history -ucx pending (never collected in ed) -bl cxs 07/14 enterobacter/ecoli -repeat bl cxs 07/14 -CXR neg -no meningitic signs/symptoms (given recent surgery of cspine) -CT a/p c/w left pyelonephritis, no hydronephrosis, left renal cyst and no other cause of abd pain identified including appendicitis or diverticulitis -cont rocephin -hold any home meds with s/e retention -alanis cath -urology consulted HTN hx- normotensive, hold antihypertensives in sepsis setting and monitor bp ( lisinopril) Anemia, hgb 10.8, ua small blood, no other evidence bleeding, cont to monitor Hypokalemia, 3.4- replete kcl, cont to monitor Hyponatremia 135, stable, no cognitive deficits, likely hypovolemic hyponatremia given poor oral intake <Girma Schneider - Last Filed: 07/14/18 11:48> (1) Sepsis Qualifiers: Sepsis type: sepsis due to unspecified organism Qualified Code(s): A41.9 - Sepsis, unspecified organism (3) Abdominal pain Qualifiers: Abdominal location: left lower quadrant Qualified Code(s): R10.32 - Left lower quadrant pain (6) Hypertension Qualifiers: Hypertension type: essential hypertension Qualified Code(s): I10 - Essential (primary) hypertension (7) Hyperlipidemia Qualifiers: Hyperlipidemia type: unspecified Qualified Code(s): E78.5 - Hyperlipidemia, unspecified
[2018-07-14] MEDS ORDERED: Potassium Chloride 20 MEQ, Lidocaine 1% 2 ML in D5% in Water 250 ML IVPB ONE (11:45)
[2018-07-14] MEDS ORDERED: cefTRIAXone 1,000 MG in Water for inj. (sterile) 20 ML 10 ML IVP SCH (15:00)
--- NOTE | 2018-07-14 15:01 | Urology - Consult Note ---
Date of Encounter: 07/14/18 Time of Encounter: 14:58 - Assessment and Plan (1) Pyelonephritis Current Visit: Yes Status: Acute Assessment and plan: Patient is a 68-year-old female who presents with a history of left pyelonephritis. Vital signs are currently stable and afebrile. White blood cell count is improved from 23.4 to 18.7. Patient is receiving IV Rocephin. Blood and urine cultures pending. Discussed ureteral stent placement if patient does not show improvement with conservative management. Will continue to follow. (2) Urinary retention Current Visit: Yes Status: Acute Assessment and plan: Patient is a 68-year-old female who presents with a history of left pyelonephritis and urinary retention. Patient has some baseline urinary retention and hesitancy, but she was unable to void on admission. Alanis catheter has been placed and is sufficiently draining urine. BUN/creatinine and GFR well within normal range. Will continue to follow. Urology CN:HPI Consult date: 07/14/18 Reason for consult Urology: Other (left pyelonephritis) History of present illness: Patient is a 68-year-old female who presents with a 3-4 day history of flu-like symptoms. Patient reports history of urinary hesitancy and retention that is significantly worsened from her baseline. Patient is status post spine surgery which resulted in chronic constipation and urinary retention. Patient states she has a history of right pyelonephritis in November 2017 and does not recall a personal history of renal stone or recurrent UTI. Patient denies any history of surgery. Patient underwent CT abdomen and pelvis suggesting left pyelonephritis, but she denies dysuria, hematuria, flank pain, fever or chills at present. Patient is currently being infused with IV Rocephin and has indwelling alanis catheter. Patient denies family history of renal stones or known cancer. Past Med Surg Social Fam HX - Past Medical History Medical history: hyperlipidemia, hypertension Psychiatric history: no psych history - Past Surgical History Additional surgical history: Neck Surgery x3, Back Surgery - Social History Smoking Status: Never smoker Smokeless Tobacco Status: No Alcohol use: none, rarely Drug use: none Medications and Allergies Bethanechol [Urecholine] 25 mg PO Q12H 07/13/18 [History] Cetirizine HCl [All Day Allergy] 10 mg PO DAILY 07/13/18 [History] Cyclobenzaprine HCl [Cyclobenzaprine HCl] 10 mg PO TID 07/13/18 [History] Gabapentin [Neurontin] 300 mg PO TID 07/13/18 [History] Lisinopril [Zestril] 5 mg PO DAILY 07/13/18 [History] Omeprazole [PriLOSEC] 20 mg PO DAILY PRN 07/13/18 [History] Oxybutynin Chloride [Ditropan Xl] 10 mg PO DAILY 07/13/18 [History] Rosuvastatin Calcium [Rosuvastatin Calcium] 10 mg PO HS 07/13/18 [History] Sertraline [Zoloft] 50 mg PO DAILY 07/13/18 [History] 3 Allergy/AdvReac Type Severity Reaction Status Date / Time No Known Allergies Allergy Verified 07/13/18 11:22 Review of Systems - Constitutional chills, fatigue, fever(s), malaise - EENT Nose, mouth and throat: headache(s), no dizziness - Cardiovascular no chest pain, no diaphoresis, no dyspnea - Respiratory no cough, no dyspnea - Gastrointestinal nausea, no abdominal pain, no vomiting - Genitourinary Genitourinary: difficulty urinating, urinary hesitancy, no dysuria, no flank pain, no hematuria, no urinary frequency, no urinary incontinence, no urinary urgency - Musculoskeletal no back pain, no muscle weakness - Integumentary no erythema, no rash, no swelling - Neurological no confusion, no syncope - Psychiatric no anxiety, no confusion - Hematologic/Lymphatic no easy bleeding, no easy bruising - Allergic/Immunologic no throat swelling, no wheezing Exam Initial Vital Signs Temp Pulse Resp BP Pulse Ox 100.4 F H 62 16 130/59 100 07/13/18 11:21 07/13/18 11:21 07/13/18 11:21 07/13/18 11:21 07/13/18 11:21 - General physical appearance Present: well developed, no distress, no pain - Eyes Present: PERRL, normal ocular movement - ENT Present: normal nares, no hearing loss, no congestion - Neck Present: no masses, trachea midline - Respiratory Present: normal respiratory effort - Cardiovascular Cardiovascular exam IM: RRR - Abdomen Abdomen: Present: soft, non tender - Genitourinary Present: other (alanis indwelling draining clear urine into bedside bag) - Integumentary Present: no rash, no abnormal pigmentation - Neurologic Present: normal coordination Urology Results - Labs 07/14/18 03:48 07/14/18 03:48 Abnormal lab results WBC 18.7 K/mcL (4.3-11.1) H 07/14/18 03:48 RBC 3.21 M/mcL (3.82-4.97) L 07/14/18 03:48 Hgb 9.5 g/dL (11.5-15.4) L 07/14/18 03:48 Hct 29.7 % (35.3-44.9) L 07/14/18 03:48 Neutrophils # 16.8 K/mcL (1.6-8.9) H 07/14/18 03:48 Lymphocytes # 0.5 K/mcL (0.6-4.6) L 07/14/18 03:48 PT 14.9 Seconds (9.4-12.1) H 07/14/18 03:48 Sodium 135 mEq/L (136-145) L 07/14/18 03:48 Potassium 3.4 mEq/L (3.5-5.1) L 07/14/18 03:48 Carbon Dioxide 19 mEq/L (23-29) L 07/14/18 03:48 Calcium 8.4 mg/dL (8.6-10.3) L 07/14/18 03:48 Lipase 4 Units/L (11-82) L 07/13/18 12:22 Ur Specimen Adequacy See below A 07/13/18 15:01 Urine Clarity Turbid (Clear) A 07/13/18 15:01 Ur Specific [place] < 1.005 (1.010-1.025) L 07/13/18 15:01 Urine Protein 100 mg/dL (Neg-Trace) H 07/13/18 15:01 Urine Blood Small (Negative) H 07/13/18 15:01 Urine Nitrite Positive (Negative) A 07/13/18 15:01 Ur Leukocyte Esterase Large (Negative) H 07/13/18 15:01 Urine Microscopic RBC 5-15 per hpf (0-3) H 07/13/18 15:01 Urine Microscopic WBC TNTC per hpf (0-3) H 07/13/18 15:01 Ur Squamous Epith Cells Many per lpf (None-Few) H 07/13/18 15:01 Urine Bacteria Many per hpf (None-Few) H 07/13/18 15:01 Ur Culture Indicated? NO. (NO) A 07/13/18 15:01 Protein/Creatinin Ratio 1.15 mg/mg (0.00-0.20) H 07/13/18 15:01 Urine Total Protein 138 mg/dL (1-14) H 07/13/18 15:01 Enterobacteriac sp PCR DETECTED (Not Detect) A 07/13/18 14:35 E. coli (PCR) DETECTED (Not Detect) A 07/13/18 14:35 Diabetes panel 07/13/18 07/14/18 Range/Units 18:37 03:48 Sodium 134 L 135 L (136-145) mEq/L Potassium 3.4 L (3.5-5.1) mEq/L Chloride 106 (98-107) mEq/L Carbon Dioxide 19 L (23-29) mEq/L BUN 16 (8-23) mg/dL Creatinine 0.85 (0.60-1.20) mg/dL Glucose 105 (70-105) mg/dL Calcium 8.4 L (8.6-10.3) mg/dL Calcium panel 07/14/18 Range/Units 03:48 Calcium 8.4 L (8.6-10.3) mg/dL Pituitary panel 07/13/18 07/14/18 Range/Units 18:37 03:48 Sodium 134 L 135 L (136-145) mEq/L Potassium 3.4 L (3.5-5.1) mEq/L Chloride 106 (98-107) mEq/L Carbon Dioxide 19 L (23-29) mEq/L BUN 16 (8-23) mg/dL Creatinine 0.85 (0.60-1.20) mg/dL Glucose 105 (70-105) mg/dL Calcium 8.4 L (8.6-10.3) mg/dL Adrenal panel 07/13/18 07/14/18 Range/Units 18:37 03:48 Sodium 134 L 135 L (136-145) mEq/L Potassium 3.4 L (3.5-5.1) mEq/L Chloride 106 (98-107) mEq/L Carbon Dioxide 19 L (23-29) mEq/L BUN 16 (8-23) mg/dL Creatinine 0.85 (0.60-1.20) mg/dL Glucose 105 (70-105) mg/dL Calcium 8.4 L (8.6-10.3) mg/dL All other labs normal. - Imaging CT scan - abdomen: report reviewed, image reviewed CT scan - pelvis: report reviewed, image reviewed Consult Discharge Plan - Plan Referrals: Dante Martinez MD [Primary Care Provider] -
[2018-07-14] MEDS: cefTRIAXone 2,000 MG in Water for inj. (sterile) 20 ML 20 ML IVP SCH (15:30)
[2018-07-14] MEDS: Gabapentin 300 MG CAPSULE PO SCH ×3 (15:51→21:02)
--- NOTE | 2018-07-14 17:42 | Electrocardiograph Report ---
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
[2018-07-14] MEDS: *HR* Promethazine 25 MG/ML VIAL IVP PRN (18:22)
[2018-07-15 03:45] LABS: Basophils % 0.2 %; Eosinophils # 0.1 K/mcL (0.0-0.6); Eosinophils % 0.8 %; Hematocrit 28.7 % (35.3-44.9); Hemoglobin 9.2 g/dL (11.5-15.4); Immature Granulocytes % 0.6 % (0-4); Lymphocytes # 0.7 K/mcL (0.6-4.6); Lymphocytes % 6.7 %; Mean Corpuscular HGB Conc 32.1 g/dL (31.6-35.5); Mean Corpuscular Hemoglobin 29.6 pg (28.0-33.3); Mean Corpuscular Volume 92.3 fL (83.0-100.0); Mean Platelet Volume 9.8 fL (9.4-12.4); Monocytes # 0.8 K/mcL (0.0-1.3); Monocytes % 7.8 %; Platelet Count 253 K/mcL (140-400); Red Blood Count 3.11 M/mcL (3.82-4.97); Red Cell Distribution Width 12.6 % (11.5-14.5); Segmented Neutrophils % 83.9 %
[2018-07-15 04:03] LABS: BUN/Creatinine Ratio 17 (6-26); Blood Urea Nitrogen 14 mg/dL (8-23); Calcium 8.7 mg/dL (8.6-10.3); Carbon Dioxide 24 mEq/L (23-29); Chloride 106 mEq/L (98-107); Glucose 107 mg/dL (70-105); Osmolality,Calculated 281 (280-300); Potassium 3.5 mEq/L (3.5-5.1); Sodium 135 mEq/L (136-145); eGFR For Non-African Americans > 60 (> 60)
[2018-07-15] MEDS: *HR* Heparin 5,000 UNIT/ML VIAL SQ SCH ×2 (06:34→17:41)
[2018-07-15] MEDS: Gabapentin 300 MG CAPSULE PO SCH ×3 (10:44→20:28)
[2018-07-15] MEDS: Loratadine 10 MG TABLET PO SCH (10:44)
--- NOTE | 2018-07-15 11:46 | Internal Med Progress Note ---
Hospitalist Progress Note - Encounter Date of Encounter: 07/15/18 Time of Encounter: 09:20 - Subjective Interval History: awake in bed, present, feeling better. less fatigued, no confusion, improving energy. denies fevers, chills, n/v. loose bms x5 in last 24 hrs and no assoicated abd pain/cramping. - Exam Vitals: Temp Pulse Resp BP Pulse Ox 99.6 F 75 15 119/79 96 07/15/18 07:19 07/15/18 07:19 07/15/18 07:19 07/15/18 07:19 07/15/18 07:19 Exam: General: awake, alert, appears stated age Cardiovascular:regular rate and rhythm, normal S1 & S2, no murmurs . no lower extremity edema Lungs:Normal breath sounds, no wheezes, or crackles. Normal respiratory effort on ra Abdomen:Soft, non-tender, non-distended, + bowel sounds Neurological: AAOx3, CN grossly intact - Assessment and Plan (1) Sepsis Current Visit: Yes Status: Resolved Assessment and Plan: Sepsis 2/2 Pyelonephritis and bacteremia evidenced by WBC 23, fever 103.2, HR 108, RR 22, suspected source Infection Likely 2/2 Urinary Retention given her history Sepsis resolved -ucx pending -bl cxs 07/14 enterobacter/ecoli -repeat bl cxs 07/14 ngtd -CXR neg -no meningitic signs/symptoms (given recent surgery of cspine) -CT a/p c/w left pyelonephritis, no hydronephrosis, left renal cyst and no other cause of abd pain identified including appendicitis or diverticulitis -cont rocephin -hold any home meds with s/e retention -07/15 now with multiple loose bms- check cdiff (2) Pyelonephritis Current Visit: Yes Status: Acute Assessment and Plan: as above cont rocephin at this time as good clinical improvement alanis cath, urology consult ucx pending (3) Bacteremia Current Visit: Yes Status: Acute Assessment and Plan: as above -bl cxs as above -repeat cxs ngtd (4) Urinary retention Current Visit: Yes Status: Acute Assessment and Plan: Patient has reported urinary retention s/p neck surgery 06/27/18 Was on oxybutynin for stress incontinence and was started on bethanechol s/p surgery Post void residual bladder scan with 761mL large post void volume -Strict I/O -Alanis cath -Urologyfollowing Held home med of oxybutynin, flexeril, and bethanechol (5) Hypertension Current Visit: No Status: Chronic Assessment and Plan: normotensive, hold antihypertensives in sepsis setting and monitor bp ( lisinopril) (6) Confusion Current Visit: Yes Status: Resolved Assessment and Plan: resolved with treatment of sepsis back to baseline mental status (7) Anemia Current Visit: Yes Status: Chronic Assessment and Plan: unclear if acute or acute on chronic hgb 10.8, ua small blood, no other evidence bleeding, cont to monitor - Time Spent with Patient Total time spent is greater than 50% in coordination of care (as documented) at patient's floor/unit and/or counseling patient: 25 - 35 minutes Plan of Care Discussed with: patient Internal Medicine: Result - Labs CBC & Chem 7: 07/15/18 03:20 07/15/18 03:20 Labs: Short CBC 07/15/18 Range/Units 03:20 WBC 10.8 (4.3-11.1) K/mcL Hgb 9.2 L (11.5-15.4) g/dL Hct 28.7 L (35.3-44.9) % Plt Count 253 (140-400) K/mcL Neutrophils # 9.0 H (1.6-8.9) K/mcL BMP 07/15/18 03:20 Sodium 135 L Potassium 3.5 Chloride 106 Carbon Dioxide 24 BUN 14 Creatinine 0.83 Glucose 107 H Calcium 8.7 - ABG Interpretation ABG results: PT/INR, D-dimer PT 14.9 Seconds (9.4-12.1) H 07/14/18 03:48 Consult Discharge Plan - Plan Referrals: Juan,Dante Thayer MD [Primary Care Provider] - (1) Sepsis Qualifiers: Sepsis type: sepsis due to unspecified organism Qualified Code(s): A41.9 - Sepsis, unspecified organism (5) Hypertension Qualifiers: Hypertension type: essential hypertension Qualified Code(s): I10 - Essential (primary) hypertension
[2018-07-15] MEDS: *HR* Promethazine 25 MG/ML VIAL IVP PRN (13:42)
--- NOTE | 2018-07-15 14:04 | Urology Progress Note ---
Date of Encounter: 07/15/18 Time of Encounter: 14:03 - Assessment and Plan (1) Pyelonephritis Current Visit: Yes Status: Acute Assessment and plan: 60-year-old woman with left pyelonephritis. Continue IV antibiotic. Await culture results. Gram-negative rods are currently growing out of her blood. Continue Gifford catheter today. We can see about removing it tomorrow. Progress Note Narrative: Patient is doing well today. Urine is draining clear. Only a minor fever yesterday. Objective Initial Vital Signs Temp Pulse Resp BP Pulse Ox 100.4 F H 62 16 130/59 100 07/13/18 11:21 07/13/18 11:21 07/13/18 11:21 07/13/18 11:21 07/13/18 11:21 - General physical appearance Present: well developed, well nourished, no distress - Respiratory Present: normal respiratory effort - Abdomen Present: soft - Genitourinary Urine Appearance: Present: Clear - Labs 07/15/18 03:20 07/15/18 03:20 Diabetes panel 07/15/18 Range/Units 03:20 Sodium 135 L (136-145) mEq/L Potassium 3.5 (3.5-5.1) mEq/L Chloride 106 (98-107) mEq/L Carbon Dioxide 24 (23-29) mEq/L BUN 14 (8-23) mg/dL Creatinine 0.83 (0.60-1.20) mg/dL Glucose 107 H (70-105) mg/dL Calcium 8.7 (8.6-10.3) mg/dL Calcium panel 07/15/18 Range/Units 03:20 Calcium 8.7 (8.6-10.3) mg/dL Pituitary panel 07/15/18 Range/Units 03:20 Sodium 135 L (136-145) mEq/L Potassium 3.5 (3.5-5.1) mEq/L Chloride 106 (98-107) mEq/L Carbon Dioxide 24 (23-29) mEq/L BUN 14 (8-23) mg/dL Creatinine 0.83 (0.60-1.20) mg/dL Glucose 107 H (70-105) mg/dL Calcium 8.7 (8.6-10.3) mg/dL Adrenal panel 07/15/18 Range/Units 03:20 Sodium 135 L (136-145) mEq/L Potassium 3.5 (3.5-5.1) mEq/L Chloride 106 (98-107) mEq/L Carbon Dioxide 24 (23-29) mEq/L BUN 14 (8-23) mg/dL Creatinine 0.83 (0.60-1.20) mg/dL Glucose 107 H (70-105) mg/dL Calcium 8.7 (8.6-10.3) mg/dL Consult Discharge Plan - Plan Referrals: Dante Martinez MD [Primary Care Provider] -
[2018-07-15] MEDS: cefTRIAXone 2,000 MG in Water for inj. (sterile) 20 ML 20 ML IVP SCH (15:13)
[2018-07-15 19:24] LABS: Adenovirus F 40/41 PCR Not detected (Not detect); Astrovirus PCR Not detected (Not detect); C.difficile Toxin A/B by PCR DETECTED (Not detect); Campylobacter by PCR Not detected (Not detect); Cryptosporidium by PCR Not detected (Not detect); Cyclospora cayetanensis PCR Not detected (Not detect); E. coli O157 by PCR Not detected (Not detect); Entamoeba histolytica PCR Not detected (Not detect); Enteroaggregative E.coli(EAEC) Not detected (Not detect); Enteropathogenic E.coli(EPEC) Not detected (Not detect); Enterotoxigenic E.coli (ETEC) Not detected (Not detect); Giardia lamblia PCR Not detected (Not detect); Norovirus GI/GII PCR Not detected (Not detect); Plesiomonas shigelloides PCR Not detected (Not detect); Rotavirus A PCR Not detected (Not detect); Salmonella PCR Not detected (Not detect); Sapovirus PCR Not detected (Not detect); Shig/EnteroinvasiveE coli EIEC Not detected (Not detect); Shigalike tox-prod E coli STEC Not detected (Not detect); Vibrio PCR Not detected (Not detect); Vibrio cholerae PCR Not detected (Not detect); Yersinia enterocolitica PCR Not detected (Not detect)
[2018-07-15] MEDS ORDERED: Prochlorperazine 10 MG/2 ML VIAL IVP PRN (19:47)
[2018-07-15] MEDS: Vancomycin Oral Soln 125 MG/2.5 ML UDC PO SCH (20:41)
[2018-07-16 06:10] LABS: Basophils % 0.4 %; Eosinophils # 0.3 K/mcL (0.0-0.6); Eosinophils % 4.1 %; Hematocrit 31.6 % (35.3-44.9); Hemoglobin 10.3 g/dL (11.5-15.4); Immature Granulocytes % 0.1 % (0-4); Mean Corpuscular HGB Conc 32.6 g/dL (31.6-35.5); Mean Corpuscular Hemoglobin 29.5 pg (28.0-33.3); Mean Corpuscular Volume 90.5 fL (83.0-100.0); Mean Platelet Volume 9.7 fL (9.4-12.4); Monocytes # 0.7 K/mcL (0.0-1.3); Monocytes % 9.7 %; Neutrophils # 5.3 K/mcL (1.6-8.9); Platelet Count 283 K/mcL (140-400); Red Blood Count 3.49 M/mcL (3.82-4.97); Red Cell Distribution Width 12.4 % (11.5-14.5); Segmented Neutrophils % 72.7 %
[2018-07-16 06:25] LABS: BUN/Creatinine Ratio 16 (6-26); Blood Urea Nitrogen 12 mg/dL (8-23); Calcium 8.9 mg/dL (8.6-10.3); Carbon Dioxide 23 mEq/L (23-29); Chloride 106 mEq/L (98-107); Glucose 105 mg/dL (70-105); Osmolality,Calculated 284 (280-300); Potassium 3.3 mEq/L (3.5-5.1); Sodium 137 mEq/L (136-145); eGFR For Non-African Americans > 60 (> 60)
[2018-07-16] MEDS: *HR* Heparin 5,000 UNIT/ML VIAL SQ SCH ×2 (06:34→18:58)
--- NOTE | 2018-07-16 07:57 | Internal Med Progress Note ---
Hospitalist Progress Note - Encounter Date of Encounter: 07/16/18 Time of Encounter: 09:20 - Subjective Interval History: awake, family present, no fevers or chills. no confusion. energy is improving. denies abd pain, nausea, emesis. no diarrhea this morning as of yet. - Exam Vitals: Temp Pulse Resp BP Pulse Ox 98.8 F 78 16 146/88 99 07/16/18 07:37 07/16/18 07:37 07/16/18 07:37 07/16/18 07:37 07/16/18 07:37 Exam: General: awake, alert, appears stated age Cardiovascular:regular rate and rhythm, normal S1 & S2, no murmurs . no lower extremity edema Lungs:Normal breath sounds, no wheezes, or crackles. Normal respiratory effort on ra Abdomen:Soft, non-tender, non-distended, + bowel sounds Neurological: AAOx3, CN grossly intact : alanis cath with clear yellow urine Skin: warm dry , normal color - Assessment and Plan (1) Sepsis Current Visit: Yes Status: Resolved Assessment and Plan: Sepsis 2/2 Pyelonephritis and bacteremia evidenced by WBC 23, fever 103.2, HR 108, RR 22, suspected source Infection Likely 2/2 Urinary Retention given her history Confirmed C Diff Sepsis resolved -ucx pending results -bl cxs 07/14 enterobacter/ecoli, sensitivities pending -repeat bl cxs 07/14 ngtd -CXR neg -no meningitic signs/symptoms (given recent surgery of cspine) -CT a/p c/w left pyelonephritis, no hydronephrosis, left renal cyst and no other cause of abd pain identified including appendicitis or diverticulitis -cont rocephin -hold any home meds with s/e retention -07/15 now with multiple loose bms- c diff +, remainder stool studies neg (2) Pyelonephritis Current Visit: Yes Status: Acute Assessment and Plan: as above cont rocephin at this time, even in setting of cdiff, as good clinical improvement in signs/symptoms of sepsis, bacteremia, pyelonephritis alanis cath, urology following re urinary retention as likely complicating factor factor ucx as above (3) Bacteremia Current Visit: Yes Status: Acute Assessment and Plan: -cont rocephin -bl cxs as above -repeat cxs ngtd (4) Urinary retention Current Visit: Yes Status: Acute Assessment and Plan: Patient has reported urinary retention s/p neck surgery 06/27/18 Was on oxybutynin for stress incontinence and was started on bethanechol s/p surgery Post void residual bladder scan with 761mL large post void volume -Strict I/O -Alanis cath -Urology following Held home med of oxybutynin, flexeril, and bethanechol -urology will fu re possible removal of alanis today (5) Hypertension Current Visit: No Status: Chronic Assessment and Plan: normotensive, hold antihypertensives in sepsis setting and monitor bp ( lisinopril) as bps are at goal (6) Confusion Current Visit: Yes Status: Resolved Assessment and Plan: resolved with treatment of sepsis back to baseline mental status (7) Anemia Current Visit: Yes Status: Chronic Assessment and Plan: unclear if acute or acute on chronic hgb 10.8, ua small blood, no other evidence bleeding, cont to monitor hgb uptrending without intervention back toward admitting hgb (8) C. difficile diarrhea Current Visit: Yes Status: Acute Assessment and Plan: + c diff on stool studies enteric precautions -oral vanc started 07/15, cont -cont rocephin in setting of cdiff as benefit of cont treatment bacteremia/ pyelonephritis outweighs risk at this time DVT Prophylaxis: sq heparin - Time Spent with Patient Total time spent is greater than 50% in coordination of care (as documented) at patient's floor/unit and/or counseling patient: 25 - 35 minutes Plan of Care Discussed with: patient Internal Medicine: Result - Labs CBC & Chem 7: 07/16/18 05:41 07/16/18 05:41 Labs: Short CBC 07/16/18 Range/Units 05:41 WBC 7.3 (4.3-11.1) K/mcL Hgb 10.3 L (11.5-15.4) g/dL Hct 31.6 L (35.3-44.9) % Plt Count 283 (140-400) K/mcL Neutrophils # 5.3 (1.6-8.9) K/mcL BMP 07/16/18 05:41 Sodium 137 Potassium 3.3 L Chloride 106 Carbon Dioxide 23 BUN 12 Creatinine 0.74 Glucose 105 Calcium 8.9 - ABG Interpretation ABG results: PT/INR, D-dimer PT 14.9 Seconds (9.4-12.1) H 07/14/18 03:48 Consult Discharge Plan - Plan Referrals: Dante Martinez MD [Primary Care Provider] - (1) Sepsis Qualifiers: Sepsis type: sepsis due to unspecified organism Qualified Code(s): A41.9 - Sepsis, unspecified organism (5) Hypertension Qualifiers: Hypertension type: essential hypertension Qualified Code(s): I10 - Essential (primary) hypertension
[2018-07-16] MEDS: Loratadine 10 MG TABLET PO SCH (08:25)
[2018-07-16] MEDS: Gabapentin 300 MG CAPSULE PO SCH ×3 (08:25→22:19)
[2018-07-16] MEDS: Vancomycin Oral Soln 125 MG/2.5 ML UDC PO SCH ×4 (08:26→22:18)
--- NOTE | 2018-07-16 09:19 | Urology Progress Note ---
Date of Encounter: 07/16/18 Time of Encounter: 09:17 - Assessment and Plan (1) Pyelonephritis Current Visit: Yes Status: Acute Assessment and plan: 60-year-old woman with left pyelonephritis. Okay to remove catheter today. She has been afebrile and her white blood cell count is normalized. No surgical intervention is necessary at this time. Await final culture results. Continue IV antibiotic at this point. Appreciate hospitalist support. Progress Note Narrative: 68-year-old woman with left pyelonephritis. She has had some diarrhea and a stool test was positive for Clostridium difficile. Blood cultures are growing out gram-negative rods. Final sensitivities are pending. Objective Initial Vital Signs Temp Pulse Resp BP Pulse Ox 100.4 F H 62 16 130/59 100 07/13/18 11:21 07/13/18 11:21 07/13/18 11:21 07/13/18 11:21 07/13/18 11:21 - General physical appearance Present: well developed, well nourished, no distress - Respiratory Present: normal respiratory effort - Abdomen Present: soft - Genitourinary Urine Appearance: Present: Clear - Labs 07/16/18 05:41 07/16/18 05:41 Diabetes panel 07/16/18 Range/Units 05:41 Sodium 137 (136-145) mEq/L Potassium 3.3 L (3.5-5.1) mEq/L Chloride 106 (98-107) mEq/L Carbon Dioxide 23 (23-29) mEq/L BUN 12 (8-23) mg/dL Creatinine 0.74 (0.60-1.20) mg/dL Glucose 105 (70-105) mg/dL Calcium 8.9 (8.6-10.3) mg/dL Calcium panel 07/16/18 Range/Units 05:41 Calcium 8.9 (8.6-10.3) mg/dL Pituitary panel 07/16/18 Range/Units 05:41 Sodium 137 (136-145) mEq/L Potassium 3.3 L (3.5-5.1) mEq/L Chloride 106 (98-107) mEq/L Carbon Dioxide 23 (23-29) mEq/L BUN 12 (8-23) mg/dL Creatinine 0.74 (0.60-1.20) mg/dL Glucose 105 (70-105) mg/dL Calcium 8.9 (8.6-10.3) mg/dL Adrenal panel 07/16/18 Range/Units 05:41 Sodium 137 (136-145) mEq/L Potassium 3.3 L (3.5-5.1) mEq/L Chloride 106 (98-107) mEq/L Carbon Dioxide 23 (23-29) mEq/L BUN 12 (8-23) mg/dL Creatinine 0.74 (0.60-1.20) mg/dL Glucose 105 (70-105) mg/dL Calcium 8.9 (8.6-10.3) mg/dL Consult Discharge Plan - Plan Referrals: Dante Martinez MD [Primary Care Provider] -
[2018-07-16] MEDS: cefTRIAXone 2,000 MG in Water for inj. (sterile) 20 ML 20 ML IVP SCH (16:16)
[2018-07-16] MEDS ORDERED: Melatonin 3 MG TABLET PO SCH (21:00)
[2018-07-17] MEDS: *HR* Heparin 5,000 UNIT/ML VIAL SQ SCH (05:25)
[2018-07-17 05:31] VITALS: BP 130/72
--- NOTE | 2018-07-17 08:51 | Discharge Summary ---
<Nicole Stokes - Last Filed: 07/17/18 10:30> - NOTES TO OUTPATIENT PROVIDER Notes to Outpatient Provider: she was noted to have anemia with hgb 10.8 on admission, unclear if chronic in nature as no prior labs here, stable this admission, requires pcp follow up for further eval Orders not resulted at time of discharge: Pending orders 07/17/18 04:00 CBC [Complete Blood Count] [HEME] AM 0400 CMP [Comprehensive Metabolic Panel] AM 0400 Date of Encounter: 07/17/18 - Discharge Diagnosis (1) Pyelonephritis Status: Acute (2) Sepsis Status: Resolved Qualifiers: Sepsis type: sepsis due to unspecified organism Qualified Code(s): A41.9 - Sepsis, unspecified organism (3) Hypertension Status: Chronic Qualifiers: Hypertension type: essential hypertension Qualified Code(s): I10 - Essential (primary) hypertension (4) Urinary retention Status: Chronic (5) Confusion Status: Resolved (6) Bacteremia Status: Resolved (7) Anemia Status: Chronic (8) C. difficile diarrhea Status: Acute Hospital course: Ms. Gordon is a 68 year old female - Time Spent with Patient Total time spent providing and/or coordinating discharge services: - Discharge Medications Prescriptions: Cefdinir [Omnicef] 300 mg PO BID 10 Days #20 capsule Vancomycin Oral Soln [Firvanq] 125 mg PO QID 9 Days #36 [facility] [place] Medications: Bethanechol [Urecholine] 25 mg PO Q12H 07/13/18 [History] Cetirizine HCl [All Day Allergy] 10 mg PO DAILY 07/13/18 [History] Cyclobenzaprine HCl 10 mg PO TID 07/13/18 [History] Gabapentin [Neurontin] 300 mg PO TID 07/13/18 [History] Lisinopril [Zestril] 5 mg PO DAILY 07/13/18 [History] Omeprazole [PriLOSEC] 20 mg PO DAILY PRN 07/13/18 [History] Rosuvastatin Calcium 10 mg PO HS 07/13/18 [History] Sertraline [Zoloft] 50 mg PO DAILY 07/13/18 [History] Cefdinir [Omnicef] 300 mg PO BID 10 Days #20 capsule 07/17/18 [Rx] Vancomycin Oral Soln [Firvanq] 125 mg PO QID 9 Days #36 c 07/17/18 [Rx] Allergies/Adverse Reactions: 3 Allergy/AdvReac Type Severity Reaction Status Date / Time No Known Allergies Allergy Verified 07/13/18 11:22 Date of admission: 07/14/18 15:28 Primary care physician: Dante Martinez MD - Constitutional Vitals: Temp Pulse Resp BP Pulse Ox 97.8 F 75 18 130/72 93 07/17/18 05:28 07/17/18 05:28 07/17/18 05:28 07/17/18 05:28 07/17/18 05:28 - Patient Status Disposition: Home, Self-Care Condition: Good - Discharge Instructions Instructions: Vancomycin (By mouth), Cefdinir (By mouth), Urinary Tract Infection in Women (DC), Sepsis (DC), Clostridium Difficile Infection (DC), Chronic Hypertension (DC), Anemia (GEN) Follow Up With: Dante Martinez MD [Primary Care Provider] - (office wants patient to make the appt ) Additional Instructions: Please follow up with your PCP and urology as scheduled. Return to the emergency room if your symptoms worsen or return. Take all medications as prescribed. Drink plenty of fluids. - Attending Attestation I examined this patient and my medical decision-making was reviewed with the Resident Physician Dr Rapp. I agree with the documented findings, disposition and treatment plan as described except to the extent set forth below. Mrs Gordon presented with fatigue, mild confusion and urinary retention. She was found to have pyelonephritis and subsequent e coli bacteremia. She had urinary retention which required urinary alanis cath and urology eval. She reported watery bowel movements with cdiff resulting positive. Given her pyelonephritis and bacteremia cont iv abx treatment with rocephin was required and she started oral vanc for cdiff. She is clinically returned to baseline and repeat bl cxs from 07/14 are showig no growth to date. She will dc with rxs for omnicef and vancomycin with pcp and urology follow up. Awake, at bedside. Feeling well and no complaints. very eager for dc. no fevers, chills, nausea, emesis or cva tenderness. Had formed bm this morning without abd pain. tolerating oral diet and urinating post removal of alanis without any difficulty. gen- alert, awake,appears stated age, nad cv- reg rate and rhythm, normal s1,s2, no murmurs appreciated lungs- ctabl, no wheezing, rhonchi or crackles abd- soft, non tender, non distended, + bs msk- no cva tenderness bl neuro- AAOx3, CN grossly intact, no focal deficits sepsis 2/2 pyelonephritis and e coli bactermia, resolved- bl cx sensitivities pansensitive, ucx was not sent by staff until 07/14 and had no growth, will dc on omnicef to complete course to treat bacteremia + peylonephritis c diff diarrhea- + c diff toxin, only had diarreha for two days, now formed soft stool at dc, cont oral vanc on dc to completion of course urinary retention, resolved- alanis removed and voiding now without difficulty, home meds adjusted to eliminate any with retnetion s/es, will fu with urology metabolic encephalopathy, resolved with treatment of infection anemia, unclear if chronic in nature, hgb stable this admit, she may fu outpt with pcp for further eval <Sherwin Rapp - Last Filed: 07/17/18 16:13> - NOTES TO OUTPATIENT PROVIDER Notes to Outpatient Provider: Patient admitted with bacteremia from pansensitive E.Coli likely coming from Urine with possible pyelonephritis. She was treated with rocephin and will be discharged home with omnicef. Tested positive for c.diff and will be given oral vancomycin. Also instructing patient to hold oxybutynin and bethanecol until she follows up with urology and PCP. Orders not resulted at time of discharge: Pending orders 07/17/18 04:00 CBC [Complete Blood Count] [HEME] AM 0400 CMP [Comprehensive Metabolic Panel] AM 0400 Date of Encounter: 07/17/18 Time of Encounter: 08:51 - Discharge Diagnosis (1) Pyelonephritis Priority: Secondary Status: Acute (2) Sepsis Priority: Primary Status: Resolved Qualifiers: Sepsis type: sepsis due to unspecified organism Qualified Code(s): A41.9 - Sepsis, unspecified organism (3) Hypertension Priority: Secondary Status: Chronic Qualifiers: Hypertension type: essential hypertension Qualified Code(s): I10 - Essential (primary) hypertension (4) Urinary retention Priority: Secondary Status: Chronic (5) Confusion Priority: Secondary Status: Resolved (6) Bacteremia Priority: Secondary Status: Resolved (7) Anemia Priority: Secondary Status: Chronic (8) C. difficile diarrhea Priority: Secondary Status: Acute Hospital course: Ms. Gordon is a 68 year old female with past medical history of hypertension, hyperlipidemia presented emergency department with a 2 day history of anorexia, nausea, lethargy, nausea. She was also describes symptoms of urinary hesitancy as well as suprapubic abdominal pain. She did have a fever of 100.7 at home and presented to the primary care physician who recommended they go to the emergency department. She has trace his symptoms once in the past and was diagnosed with pyelonephritis while staying in [place]. [place] emergency department, vital signs are significant for a fever of 100.4, pulse 105, respiratory rate 20. Laboratory results were significant for a leukocytosis of 23.4, baseline anemia 10.8/33.4, mild hyponatremia at 134, potassium 3.4, lactic acid of 0.8, urinalysis which was positive for nitrites, leukocyte esterase, WBCs however also complains, was epithelial cells. Abdominal CT was obtained and showed infiltration of the left pararenal space which may be indicative of pyelonephritis. She also has an enlarging renal cyst measuring 4.3 cm to 5.5 cm however to noted that this appears to be a simple cyst and requires no further imaging evaluation. She also had a chest x-ray which was unremarkable for acute process. She was admitted to the hospital for further evaluation and management of sepsis secondary to pyelonephritis. Course of hospital stay, patient's symptoms and laboratory results to gradually improve. Urine culture did not grow bacteria however peripheral blood cultures were positive for pansensitive Escherichia coli on 07/13 which were repeated on 07/14 with no growth. Urology was consulted for the recommendations recommended conservative management with IV antibiotics and outpatient urology follow-up. She received IV Rocephin 4 days with improvement of her symptoms. She did not develop diarrhea during her stay and did test positive for C. difficile toxin. She was started on oral vancomycin. On day of discharge, patient states her symptoms have completely resolved and she is eager to return home. Laboratory results did return to baseline levels including leukocytosis as well as vital signs. She will be discharged home in stable medical condition with prescription for a total of 14 days of antibiotics, Omnicef as well as a 10 day course of oral vancomycin for C. difficile infection. She was instructed to follow up with her primary care physician within 3-7 days as well as urology. All questions were answered and she was also instructed to return to the emergency department with any worsening of symptoms including fevers, chills, dysuria, worsening diarrhea, changes in mental status. Discharge discussed with: patient, nurse, social work - Time Spent with Patient Total time spent providing and/or coordinating discharge services: Date of admission: 07/14/18 15:28 Primary care physician: Dante Martinez MD Discharging clinician: Sherwin Rapp Anticipated date of discharge: 07/17/18 - Constitutional Vitals: Temp Pulse Resp BP Pulse Ox 97.8 F 75 18 130/72 93 07/17/18 05:28 07/17/18 05:28 07/17/18 05:28 07/17/18 05:28 07/17/18 05:28 General appearance: Present: A&O X 3, severe distress, answers questions appropriately Exam: Gen.: Vitals noted. No acute distress. AAOx3, resting comfortably been HEENT: PERRL/EOMI, oropharynx clear, Normocephalic, atraumatic, MMM Cardiac: RRR, no murmur, +S1/S2 Pulmonary: CTA bilaterally, no wheezes, rales or rhonchi, equal chest expansion Abdomen: soft, nontender, BS noted, no guarding, no rebound. : No flank tenderness Extremities: no BLE edema, nontender calf, no cyanosis or clubbing Neuro: A&Ox3, moves all extremities, no focal deficits Psych: Appropriate mood and behavior - Patient Status Functional capacity at discharge: independent ambulation Overall status at discharge: patient is progressing back to baseline - Diet and Activity Activity: increase activity as tolerated, resume usual activities as tolerated Diet: advance to your usual diet
[2018-07-17] MEDS: Loratadine 10 MG TABLET PO SCH (09:23)
[2018-07-17] MEDS: Gabapentin 300 MG CAPSULE PO SCH (09:23)
[2018-07-17] MEDS: Vancomycin Oral Soln 125 MG/2.5 ML UDC PO SCH (09:24)
--- NOTE | 2018-07-17 10:51 | Urology Progress Note ---
Date of Encounter: 07/17/18 Time of Encounter: 10:49 - Assessment and Plan (1) Pyelonephritis Current Visit: Yes Status: Acute Assessment and plan: Doing well. anticipate d/c home today. She can follow up in 3-4 weeks. [place] to transition to PO antibiotics. Progress Note Narrative: Doing well today. No fevers. Urine culture growing out E coli. Objective Initial Vital Signs Temp Pulse Resp BP Pulse Ox 100.4 F H 62 16 130/59 100 07/13/18 11:21 07/13/18 11:21 07/13/18 11:21 07/13/18 11:21 07/13/18 11:21 - General physical appearance Present: well developed, well nourished, no distress - Respiratory Present: normal respiratory effort - Abdomen Present: soft - Labs 07/16/18 05:41 07/16/18 05:41 Consult Discharge Plan - Plan Additional Instructions: Please follow up with your PCP and urology as scheduled. Return to the emergency room if your symptoms worsen or return. Take all medications as prescribed. Drink plenty of fluids. Referrals: Dante Martinez MD [Primary Care Provider] - (office wants patient to make the appt ) Prescriptions: Cefdinir [Omnicef] 300 mg PO BID 10 Days #20 capsule Vancomycin Oral Soln [Firvanq] 125 mg PO QID 9 Days #36 [facility]
== END 2018-07-17 13:09 | disposition home or self-care (01) | DRG 871 ==
LOC: EMEROOARM 11:18 → 2NENU 11:18 → SUATTDRO 18:33 → 2NENU 19:50
PROVIDERS: ADMIT Internal Medicine; ATTEND Internal Medicine

== ENCOUNTER 2020-01-15 08:23 | Observation (INO) ==
[2020-01-15] MEDS ORDERED: 0.9 % Sodium Chloride 1,000 ML IVC ONE (08:29)
[2020-01-15 09:13] LABS: Basophils % 0.1 %; Eosinophils # 0.1 K/mcL (0.0-0.6); Eosinophils % 0.5 %; Hematocrit 43.7 % (35.3-44.9); Immature Granulocytes % 0.5 % (0-4); Lymphocytes # 1.3 K/mcL (0.6-4.6); Mean Corpuscular Hemoglobin 30.2 pg (28.0-33.3); Mean Corpuscular Volume 94.2 fL (83.0-100.0); Mean Platelet Volume 9.7 fL (9.4-12.4); Monocytes # 0.4 K/mcL (0.0-1.3); Monocytes % 2.7 %; Neutrophils # 11.4 K/mcL (1.6-8.9); Platelet Count 331 K/mcL (140-400); Red Blood Count 4.64 M/mcL (3.82-4.97); Red Cell Distribution Width 12.7 % (11.5-14.5); Segmented Neutrophils % 86.2 %; White Blood Count 13.3 K/mcL (4.3-11.1)
[2020-01-15 09:16] LABS: Prothrombin Time 11.6 Seconds (9.4-12.1)
[2020-01-15 09:19] LABS: Activated Partial Thrombo Time 25.7 Seconds (26.0-36.0)
[2020-01-15 09:33] LABS: Alanine Aminotransferase 12 Units/L (7-52); Albumin/Globulin Ratio 1.5 (1.1-2.2); Alkaline Phosphatase 84 Units/L (34-104); Aspartate Amino Transferase 16 Units/L (13-39); BUN/Creatinine Ratio 22 (6-26); Bilirubin,Direct 0.1 mg/dL (0.0-0.2); Bilirubin,Indirect 0.8 mg/dL (0.0-1.0); Bilirubin,Total 0.9 mg/dL (0.3-1.0); Blood Urea Nitrogen 31 mg/dL (8-23); Calcium 9.8 mg/dL (8.6-10.3); Carbon Dioxide 24 mEq/L (23-29); Chloride 105 mEq/L (98-107); Globulin 2.6 g/dL (2.4-3.5); Glucose 145 mg/dL (70-105); Lipase 6 Units/L (11-82); Osmolality,Calculated 293 (280-300); Sodium 137 mEq/L (136-145); Total Protein 6.6 g/dL (6.4-8.9); Troponin I < 0.03 ng/mL (< 0.04); eGFR For African Americans 45 (> 60); eGFR For Non-African Americans 37 (> 60)
[2020-01-15 09:50] LABS: Bilirubin,Urine Small (Negative); Blood,Urine Negative (Negative); Color,Urine Dark Yellow (Yellow); Glucose,Urine (UA) Normal (Normal); Ketones,Urine Negative (Negative); Leukocyte Esterase,Urine Moderate (Negative); Nitrite,Urine Negative (Negative); PH,Urine 5.5 pH Units (5.0-8.0); Protein,Urine 30 mg/dL (Neg-Trace); Specific Gravity,Urine > 1.030 (1.010-1.025); Urobilinogen,Urine Normal (Normal)
[2020-01-15 09:53] LABS: Bacteria,Urine Few per hpf (None-Few); Squamous Epithelial Cell,Urine Many per lpf (None-Few); WBC,Urine 50-100 per hpf (0-3)
[2020-01-15 09:56] LABS: Clarity,Urine Slightly Cloudy (Clear)
[2020-01-15 10:08] LABS: Calcium Oxalate Crystals,Urine Present; Hyaline Casts,Urine Few per lpf (None-Few); RBC,Urine 0-3 per hpf (0-3)
[2020-01-15 10:09] LABS: Renal Epithelial Cells,Urine Few per hpf (None-Few)
[2020-01-15] MEDS ORDERED: predniSONE 20 MG TABLET PO ONE (10:36)
[2020-01-15] MEDS ORDERED: cefTRIAXone 1,000 MG in 0.9 % Sodium Chloride Mini Bag 100 ML IVPB ONE (10:36)
[2020-01-15] MEDS ORDERED: cefTRIAXone 2,000 MG in 0.9 % Sodium Chloride Mini Bag 100 ML IVPB ONE ×2 (10:41→11:00)
[2020-01-15] MEDS ORDERED: Naloxone 0.4 MG/ML INJ IVP PRN (11:01)
[2020-01-15 12:03] LABS: Complement C3 127 mg/dL (87-200)
[2020-01-15] MEDS: Gabapentin 300 MG CAPSULE PO SCH (20:34)
[2020-01-15] MEDS ORDERED: Famotidine 20 MG TABLET PO SCH (21:00)
[2020-01-16 05:37] LABS: Basophils % 0.1 %; Eosinophils # 0.1 K/mcL (0.0-0.6); Eosinophils % 0.5 %; Hematocrit 35.4 % (35.3-44.9); Immature Granulocytes % 0.3 % (0-4); Lymphocytes # 1.5 K/mcL (0.6-4.6); Lymphocytes % 12.9 %; Mean Corpuscular HGB Conc 32.5 g/dL (31.6-35.5); Mean Corpuscular Hemoglobin 30.7 pg (28.0-33.3); Mean Corpuscular Volume 94.4 fL (83.0-100.0); Mean Platelet Volume 10.1 fL (9.4-12.4); Monocytes # 0.5 K/mcL (0.0-1.3); Monocytes % 4.4 %; Neutrophils # 9.6 K/mcL (1.6-8.9); Platelet Count 277 K/mcL (140-400); Red Blood Count 3.75 M/mcL (3.82-4.97); Red Cell Distribution Width 12.8 % (11.5-14.5); Segmented Neutrophils % 81.8 %; White Blood Count 11.7 K/mcL (4.3-11.1)
[2020-01-16 05:38] LABS: Hemoglobin 11.5 g/dL (11.5-15.4)
[2020-01-16 05:52] LABS: BUN/Creatinine Ratio 29 (6-26); Blood Urea Nitrogen 26 mg/dL (8-23); Calcium 9.6 mg/dL (8.6-10.3); Carbon Dioxide 21 mEq/L (23-29); Chloride 108 mEq/L (98-107); Glucose 111 mg/dL (70-105); Osmolality,Calculated 295 (280-300); Potassium 4.3 mEq/L (3.5-5.1); Sodium 140 mEq/L (136-145); eGFR For African Americans > 60 (> 60); eGFR For Non-African Americans > 60 (> 60)
[2020-01-16] MEDS: Gabapentin 300 MG CAPSULE PO SCH ×2 (07:32→14:22)
[2020-01-16] MEDS ORDERED: lisinopriL 5 MG TABLET PO SCH (09:00)
[2020-01-16] MEDS ORDERED: predniSONE 20 MG TABLET PO SCH (09:00)
[2020-01-16] MEDS ORDERED: cefTRIAXone 2,000 MG in Water for inj. (sterile) 20 ML IVP SCH (09:00)
[2020-01-16] MEDS ORDERED: Famotidine 20 MG TABLET PO SCH (10:30)
[2020-01-16 12:03] LABS: Hepatitis B Surface Antigen Nonreactive (Nonreactive)
[2020-01-16 12:31] LABS: HIV-1&2 Antibody & p24 Ag Nonreactive (Nonreactive)
[2020-01-16 12:32] LABS: Hepatitis C Virus Antibody Nonreactive (Nonreactive)
[2020-01-16 12:33] LABS: Hepatitis A Antibody IgM Nonreactive (Nonreactive)
[2020-01-16 14:15] VITALS: BP 119/66
[2020-01-18 11:16] LABS: ANA IgG by ELISA NONE DETECTED (None Detected)
== END 2020-01-16 16:08 | disposition home or self-care (01) ==
LOC: 3ANU 08:23 → EMEROOARM 08:23 → SUATTDRO 11:01 → 3ANU 11:38
PROVIDERS: ADMIT Internal Medicine; ATTEND Pharmacist